=== PATIENT | female | born 1970 | race Caucasian/White ===

== ENCOUNTER 2016-08-01 17:42 | Emergency (ER) | payer BC ==
[2016-08-01] MEDS ORDERED: FAMOTIDINE 20 MG TAB ONE (17:43)
[2016-08-01] MEDS ORDERED: HEPARIN 25,000 UNITS/250 ML D5W BAG (100 UNITS/ML) ONE (17:43)
[2016-08-01] MEDS ORDERED: TENECTEPLASE 50 MG KIT (TNKase)(J3101) ONE (17:43)
[2016-08-01] MEDS ORDERED: HEPARIN SOD (PORCINE) 5000 UNITS/ML VIAL ONE (17:43)
[2016-08-01] MEDS ORDERED: FAMOTIDINE 20 MG TAB As Ordered ONE (18:20)
[2016-08-01] MEDS ORDERED: ISOVUE-370 76% 100ML VIAL (Q9967) As Ordered ONE (18:28)
[2016-08-01 18:30] LABS: BASO % 0.2 % (0.0-1.0); EOS # 0.2 K/mm3 (0.0-0.50); EOS % 1.9 % (0.0-3.0); LARGE UNSTAINED CELL # 0.1 K/mm3 (0.0-0.4); LARGE UNSTAINED CELL % 0.4 % (0.0-4.0); LYMPH # 1.3 K/mm3 (1.5-4.5); LYMPH % 9.1 % (24.0-44.0); MEAN CORPUSCULAR HEMOGLOBIN 31.8 pg (27.0-33.0); MEAN CORPUSCULAR HGB CONC 34.3 g/dl (32.0-36.5); MEAN CORPUSCULAR VOLUME 92.9 fl (80.0-96.0); MONO # 0.6 K/mm3 (0.0-0.8); NEUTROPHILS # 11.5 K/mm3 (1.8-7.7); NEUTROPHILS % 84.3 % (36.0-66.0); PLATELET COUNT, AUTOMATED 252 k/mm3 (150-450); RED CELL DISTRIBUTION WIDTH 12.7 % (11.5-14.5); WHITE BLOOD COUNT 13.6 K/mm3 (4.0-10.0)
[2016-08-01 18:33] LABS: INR 0.97
--- NOTE | 2016-08-01 18:46 | REP ---
Clinical: Chest pain . Comparison: None . Findings: The mediastinum and cardiac silhouette are stable and within normal limits for portable technique. The lung colon are clear without acute consolidation, effusion, or pneumothorax. Skeletal structures are intact. Impression: Normal portable chest x-ray Signed by Phillip Pettit MD 08/01/2016 06:37 P
--- NOTE | 2016-08-01 18:50 | REP ---
Clinical: Acute chest pain. Rule out thoracic aortic dissection. Technique: Axial contrast enhanced images from the thoracic inlet to the upper abdomen using 100 ml Isovue 370 intravenous contrast material with coronal and sagittal re-formations. Findings: Satisfactory enhancement of the thoracic aorta without aneurysm or dissection. Heart and pericardium are normal. Bilateral lung colon are well aerated and clear without acute pulmonary parenchymal consolidation or atelectasis. No nodule or mass lesion. No pleural effusion/reaction. No pneumothorax. No adenopathy. Impression: No evidence for thoracic aortic aneurysm or dissection. No acute pleuroparenchymal or mediastinal process. Signed by Phillip Pettit MD 08/01/2016 06:42 P
[2016-08-01] MEDS ORDERED: MORPHINE 2 MG/ML 1ML SYRINGE As Ordered ONE ×3 (18:51→19:18)
[2016-08-01 18:52] LABS: ANION GAP 9 MEQ/L (8-16); BLOOD UREA NITROGEN 7 MG/DL (7-18); CALCIUM LEVEL 9.4 MG/DL (8.5-10.1); CARBON DIOXIDE LEVEL 29 MEQ/L (21-32); CHLORIDE LEVEL 103 MEQ/L (98-107); GLOMERULAR FILTRATION RATE > 60.0 (>58); GLUCOSE, FASTING 130 MG/DL (70-105); POTASSIUM SERUM 4.2 MEQ/L (3.5-5.1); SODIUM LEVEL 141 MEQ/L (136-145)
[2016-08-01] MEDS ORDERED: METOPROLOL TART 25 MG TABLET As Ordered ONE (19:27)
--- NOTE | 2016-08-01 19:32 | EDDOCDS ---
Physician Documentation [facility] Name: Valery Mendoza Age: 45 yrs Sex: Female : 1970 Arrival Date: 08/01/2016 Time: 17:42 Bed 2 Private MD: NO PRIMARY PHYSICIAN, . Disposition: 08/01 18:55 Critical Care:. pc Disposition: 08/01/16 18:57 Transfer ordered to [facility]. Diagnosis is ST elevation (STEMI) myocardial infarction of other sites - anteroseptolaterally. - Reason for transfer: Higher level of care. - Accepting physician is Dr. Chris. - Condition is Stable. - Problem is new. - Symptoms have improved. HPI: 18:28 This 45 yrs old Female presents to ER via Walkin/Carried/Asstd with pc complaints of Chest Pain. 18:28 The history is obtained from the patient. Symptoms began She has been having chest pain pc on and off for two weeks. It started at 7am this morning and has not stopped. . At its worst, the symptoms were a 10 out of 10. In the emergency department, the symptoms are a 10 out of 10. The chest pain is described as a pressure, a tightness. It is located primarily in the substernal area. The pain does not radiate. The chest pain was associated with nausea, sweating. The symptoms are aggravated by exertion, The symptoms are alleviated by nothing. The patient's known risk factors for coronary artery disease include: smoking cigarettes, hypertension, a family history of coronary artery disease, The patient's known risk factors for pulmonary embolism include: smoking cigarettes, The patient's known risk factors for thoracic aortic dissection include: hypertension. The patient has not recently seen a physician. Historical: - Allergies: no known allergies; - Home Meds: 1. Motrin 600 mg Oral tab (Last dose: 08/01/2016 16:00) 2. Tylenol 325 mg Oral tab 2 tabs (Last dose: 08/01/2016 15:00) - PMHx: none; - PSHx: none; - The history from nurses notes was reviewed: and I agree with what is documented. - Social history: Smoking status: Patient uses tobacco products, current every day smoker. No barriers to communication noted, The patient speaks fluent [place]ian, Speaks appropriately for age. - : The pt / caregiver states he / she is not on anticoagulants. Home medication list is obtained from the patient. - Hospitalizations: : No recent hospitalization is reported. - Exposure Risk Screening:: None identified. - Immunization history:: All immunizations up-to-date. - Family history: Pertinent for heart disease, hypertension. - Social history:: the patient smokes cigarettes the patient drinks alcohol. 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 The cardiovascular, respiratory, pc gastrointestinal and neurological components are also addressed in the HPI. Exam: 18:28 General Appearance: alert, moderate distress. pc 18:28 ENT: ear, nose and throat normal, pharynx normal. 18:28 Neck: supple, non-tender, no masses are appreciated. 18:28 Respiratory: no respiratory distress, normal breath sounds, chest non-tender. 18:28 Cardiovascular: regular heart rhythm, normal heart sounds, equal and full pulses bilaterally, tachycardia, 110bpm. 18:28 Abdomen: soft, non-tender, no organomegaly, normal bowel sounds. 18:28 Skin: skin color is normal, warm, dry. 18:28 Extremities: The extremities have a grossly normal appearance, are non-tender, without acute ROM abnormalities. 18:28 Neuro: alert, oriented to person, place and time, cranial nerves normal as tested, no motor deficits, no sensory deficits. 18:28 Psych: normal mood, affect is appropriate. Vital Signs: 17:44 BP 146 / 114; Pulse 101; Resp 20 S; Temp 99.1(O); Pulse Ox 99% on R/A; Weight 83.91 kg gr2 / 184.99 lbs (R); Height 5 ft. 6 in. (167.64 cm) (R); Pain 10/10; 18:15 BP 132 / 100 (auto/); dsf 18:20 Pulse 110 MON; Pulse Ox 100% ; dsf 18:22 BP 135 / 93 (auto/); dsf 18:22 Pulse 106 MON; Pulse Ox 99% ; dsf 18:24 Pain 7/10; ms2 18:24 Pain 7/10; ms2 18:25 BP 122 / 83 (auto/); dsf 18:25 Pulse 90 MON; Pulse Ox 99% ; dsf 18:25 BP 134 / 89; Pulse 87; Pain 6/10; dsf 18:37 BP 133 / 86 (auto/); dsf 18:40 Pulse 92 MON; Pulse Ox 99% ; dsf 18:41 BP 134 / 89 (auto/); dsf 18:41 Pain 6/10; ms2 18:42 Pulse 78 MON; Pulse Ox 100% ; dsf 18:46 BP 133 / 87 (auto/); dsf 18:46 Pulse 93 MON; Pulse Ox 98% ; dsf 18:46 Pain 6/10; ms2 18:47 BP 136 / 83 (auto/); dsf 18:47 Pulse 88 MON; Pulse Ox 98% on 4 lpm NC; Pain 5/10; dsf 18:51 BP 137 / 80 (auto/); ms2 18:52 Pulse 92 MON; Pulse Ox 97% ; ms2 18:56 BP 129 / 91 (auto/); ms2 18:57 Pulse 73 MON; Pulse Ox 97% ; ms2 18:59 Pain 5/10; ms2 19:01 BP 132 / 88 (auto/); ko2 19:02 Pulse 72 MON; Pulse Ox 98% ; ko2 19:06 BP 136 / 97 (auto/); ko2 19:07 Pulse 95 MON; Pulse Ox 99% ; ko2 19:11 Pain 6/10; ko2 19:25 Pain 5/10; ko2 19:30 BP 141 / 94; Pulse 84; Resp 18; Temp 97.5(T); Pulse Ox 99% on 4 lpm NC; Pain 8/10; ko2 17:44 Body Mass Index 29.86 (83.91 kg, 167.64 cm) gr2 MDM: 17:53 ECG WITH READING ER PHYS+CARDIAG ordered. EDMS 18:11 Financial registration complete. kf3 18:12 Aspirin Chewable Tablet 324 mg PO once ordered. pc 18:12 Plavix - Clopidogrel 300 mg PO once ordered. pc 18:12 Highway Administrative Engineer/Pulse Ox/q 15 min VS ordered. pc 18:12 Draw and hold 1 red top tube ordered. pc 18:12 IV Saline Lock x 2 ordered. pc 18:12 Rhythm Strip to chart ordered. pc 18:12 Nitrostat 0.4 mg Sublingual every 5 minutes; hold if SBP<90mmHg.Document Pain Score pc Response to Each Dose x3 ordered. 18:12 morphine 2 mg IVP every 5 minutes; Document pain score/vitals after each dose (Hold if pc SBP < 90mmHg) x5 ordered. 18:12 Ondansetron 4 mg IVP once ordered. pc 18:13 Basic Metabolic Profile Ordered. EDMS 18:13 CBC with Diff Ordered. EDMS 18:13 Cardiac Injury Profile Ordered. EDMS 18:13 PT/INR Ordered. EDMS 18:13 PTT Ordered. EDMS 18:13 Troponin Ordered. EDMS 18:13 Chest, 1 View Ordered. EDMS 18:15 Famotidine 20 mg PO once ordered. pc 18:26 CT Chest Angio R/O PE Ordered. EDMS 18:28 Differential diagnosis: acute myocardial infarction, pulmonary embolus, thoracic aortic pc disection, unstable angina. Plan: labs, EKG, meds, imaging. The patient was medicated with aspirin in the Emergency Department. Test interpretation: EKG. ED course: . 18:40 Test interpretation: X-RAY - interpreted by me, 1 view chest widened mediastinum r/o pc TAA. 18:43 Tenecteplase (pt 80 to <90kg) 45 mg IV at bolus bolus; IV push over 5 seconds, flush pc line with 10mL of NS or D5W. ordered. 18:43 heparin (Thrombolytic Protocol, 12 units/kg/hr)) 06454 units IV at 1000 units/hr once; pc Max. dose 1000units/hr. No Lovenox past 18hrs/ draw labs. ordered. 18:43 heparin (Thrombolytic Protocol, 60 units/kg)) 60 units/kg IVP once; 4000 units. Ensure pc no Lovenox in past 18hr, labs drawn ordered. 18:44 CBC with Diff Reviewed. pc 18:44 PTT Reviewed. pc 18:44 PT/INR Reviewed. pc 18:50 [facility] [place] [place] Payment Agreement was scanned into [employer] and attached to record. kf3 18:55 Data reviewed: old medical records, vital signs, nurses notes, EKG(s), lab test pc results, all radiology studies and available results. Test interpretation: interpreted by Radiologist and personally reviewed, Chest CT; no acute disease. The patient has been re-examined and re-evaluated. The patient's symptoms have markedly improved after treatment. Physician consultation: Dr. Shabbir Chris regarding patient's condition, and he accepts in transfer to [facility]. Disposition: The historical points, examination findings, and any diagnostic results supporting the provided diagnosis, were discussed with the patient or legal guardian. The decision to transfer to the patient to another facility was explained, based on the need for a required specialist that [facility] does not immediately have available. 18:55 ED course: Thrombolytics were delayed due a widened mediastinum on CXR that required CT pc to rule out a TAA.. 18:58 Basic Metabolic Profile Reviewed. pc 18:58 Troponin Reviewed. pc 19:10 ECG WITH READING ER PHYS+CARDIAG ordered. EDMS 19:19 ED course: ekg at this time shows J point elevations in the pathologic leads have cs11 decreased - ST segment elevation is now technically absent though T wave inversion is still present. pt. also states her chest discomfort has decreased at this time.. 19:25 Metoprolol (Tartrate) 25 mg PO once ordered. cs11 EC:28 Rate is 82 beats/min. Rhythm is regular, Normal Sinus Rhythm. QRS [place] is Normal. ND pc interval is normal. QRS interval is normal. QT interval is normal. No Q waves. T waves are Normal. ST Segment is elevated in leads I, aVL, V5, V6, <1mm. ST Segment is elevated in leads V1, V2, V3, V4, 2-5mm. ST Segment is depressed in leads II, III, aVF. Clinical impression: Normal Sinus Rhythm and widespread ST elevation anteroseptolaterally, with inferior reciprocal ST depression consistent with AMI. Administered Medications: 18:18 Drug: Aspirin 324 mg [aspirin 81 mg chewable tablet (4 tabs)] Route: PO; dsf 18:18 Drug: Plavix - Clopidogrel 300 mg [clopidogrel 75 mg tablet (4 tabs)] Route: PO; dsf 18:18 Drug: Nitrostat 0.4 mg [Nitrostat 0.4 mg sublingual tablet (1 tabs)] Route: Sublingual; dsf 18:18 Drug: morphine 2 mg [morphine 2 mg/mL intravenous cartridge (1 mL)] Route: IVP; Site: dsf right antecubital; 18:24 Follow up: Pain 7/10 Adult; see trend VS ms2 18:18 Drug: Ondansetron 4 mg [ondansetron HCl 2 mg/mL intravenous solution (2 mL)] Route: dsf IVP; Site: right antecubital; 18:24 Drug: Nitrostat 0.4 mg [Nitrostat 0.4 mg sublingual tablet (1 tabs)] Route: Sublingual; dsf 18:24 Follow up: Pain 7/10 Adult; see trend VS ms2 18:24 Drug: Famotidine 20 mg [famotidine 20 mg tablet (1 tabs)] Route: PO; dsf 18:25 CANCELLED (Other Intervention Used): Tenecteplase (pt 80 to <90kg) 45 mg IV at bolus pc bolus; IV push over 5 seconds, flush line with 10mL of NS or D5W. 18:25 CANCELLED (Other Intervention Used): heparin (Thrombolytic Protocol, 12 units/kg/hr)) pc 86783 units IV at 12 units/kg/hr once; 1000units/hr. No Lovenox past 18hrs/ draw labs. 18:25 CANCELLED (Other Intervention Used): heparin (Thrombolytic Protocol, 60 units/kg)) 60 pc units/kg IVP once; 4000 units. Ensure no Lovenox in past 18hr, labs drawn 18:41 Drug: Nitrostat 0.4 mg [Nitrostat 0.4 mg sublingual tablet (1 tabs)] Route: Sublingual; dsf 18:41 Follow up: Pain 6/10 Adult; see trend VS ms2 18:46 Follow up: Pain 6/10 Adult; see trend VS ms2 18:45 Drug: Tenecteplase (pt 80 to <90kg) 45 mg [tenecteplase 50 mg intravenous kit] Route: dsf IV; Rate: bolus; Site: left antecubital; 18:47 Drug: heparin (Thrombolytic Protocol, 12 units/kg/hr)) 59238 units [heparin (porcine) dsf 5,000 unit/mL injection solution] {Co-Signature: ema (Yuly Bradley RN).} Route: IV; Rate: 1000 units/hr; Site: right antecubital; 18:47 Drug: heparin (Thrombolytic Protocol, 60 units/kg)) 5034.6 units [heparin (porcine) dsf 5,000 unit/mL injection solution (1.006 mL)] {Co-Signature: ema (Yuly Bradley RN).} Route: IVP; Site: right antecubital; 18:53 Drug: morphine 2 mg [morphine 2 mg/mL intravenous cartridge (1 mL)] Route: IVP; Site: dsf left antecubital; 18:59 Follow up: Pain 5/10 Adult; see trend VS ms2 19:10 Drug: morphine 2 mg [morphine 2 mg/mL intravenous cartridge (1 mL)] Route: IVP; Site: ko2 left antecubital; 19:11 Follow up: Pain 6/10 Adult ko2 19:23 Drug: morphine 2 mg [morphine 2 mg/mL intravenous cartridge (1 mL)] Route: IVP; Site: ko2 left antecubital; 19:25 Follow up: Pain 5/10 Adult ko2 19:30 Drug: Metoprolol 25 mg [metoprolol tartrate 25 mg tablet (1 tabs)] Route: PO; ko2 Critical Care Time: 18:55 Critical care time: Bedside Care: 40 minutes, Consultation: 15 minutes, Family pc Intervention: 15 minutes. Total time: 70 minutes Signatures: Dispatcher [employer] EDDave Jo MD MD pc Libra Guo, RN RN srm Sanya, Bernardo, Reg Reg kf3 Michael Rojas DO DO cs11 Bethany Arevalo RN RN ko2 Spencer Valero RN ms2 Anna Jensen RN dsf Yuly Bradley RN [facility] The chart was reviewed and I authenticate all verbal orders and agree with the evaluation and treatment provided.Corrections: (The following items were deleted from the chart) 18:25 18:14 Tenecteplase (pt 80 to <90kg) 45 mg IV at bolus bolus; IV push over 5 seconds, pc flush line with 10mL of NS or D5W. ordered. pc 18:25 18:14 heparin (Thrombolytic Protocol, 12 units/kg/hr)) 42003 units IV at 12 units/kg/hr pc once; 1000units/hr. No Lovenox past 18hrs/ draw labs. ordered. pc 18:25 18:14 heparin (Thrombolytic Protocol, 60 units/kg)) 60 units/kg IVP once; 4000 units. pc Ensure no Lovenox in past 18hr, labs drawn ordered. pc Attachments: 18:50 [facility] [place] [place] Payment Agreement kf3 [id number]
--- NOTE | 2016-08-01 19:32 | EDDOCDS ---
Nurse's Notes [facility] Name: Valery Mendoza Age: 45 yrs Sex: Female : 1970 Arrival Date: 08/01/2016 Time: 17:42 Bed 2 Private MD: NO PRIMARY PHYSICIAN, . Diagnosis: ST elevation (STEMI) myocardial infarction of other sites-anteroseptolaterally Presentation: 08/01 17:51 Presenting complaint: Patient states: states started with back ache, cough, chest pain, srm mucousy stools yesterday. pain not going away. headache. head congestion. states has taken tylenol and motrin but cant keep it down. Aspirin was not taken prior to arrival. Adult Sepsis Screening: The patient does not have new or worsening altered mentation. Patient's respiratory rate is less than 22. Systolic blood pressure is greater than 100. Patient has a qSOFA score of 0- Negative Sepsis Screen. Suicide/Homicide risk assessment- the patient denies having any suicidal and/or homicidal ideations and does not present with any other emotional, behavioral or mental health complaints. Status: Patient is not a service delivery management consultant or dependent. Transition of care: patient was not received from another setting of care. 17:51 Acuity: KOKO Level 2 srm 17:51 Method Of Arrival: Walkin/Carried/Asstd srm 17:51 Red Flag criteria, patient assessed and taken directly to a bed. srm Triage Assessment: 17:55 General: Appears uncomfortable, Behavior is appropriate for age, cooperative, crying. srm Pain: Pain currently is 10 out of 10 on a pain scale. Cardiovascular: Chest pain is described as Pain is 10 out of 10 on a pain scale. began yesterday. 19:12 Cardiovascular: Chest pain radiates to left. ko2 19:12 HIV screening NA for this visit Offered previously. ko2 19:13 Cardiovascular: Chest pain episodes are continuous. 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 Motrin 600 mg Oral tab (Last dose: 08/01/2016 16:00) 2. Tylenol 325 mg Oral tab 2 tabs (Last dose: 08/01/2016 15:00) - PMHx: none; - PSHx: none; - The history from nurses notes was reviewed: and I agree with what is documented. - Social history: Smoking status: Patient uses tobacco products, current every day smoker. No barriers to communication noted, The patient speaks fluent Kazakh, Speaks appropriately for age. - : The pt / caregiver states he / she is not on anticoagulants. Home medication list is obtained from the patient. - Hospitalizations: : No recent hospitalization is reported. - Exposure Risk Screening:: None identified. - Immunization history:: All immunizations up-to-date. - Family history: Pertinent for heart disease, hypertension. - Social history:: the patient smokes cigarettes the patient drinks alcohol. Screenin:12 Screening information is obtained from the patient. Fall risk: No risks identified. ko2 Assistance ADL's: requires no assistance with activities of daily living. Abuse/DV Screen: The patient / caregiver reports he/she is: not in a situation that causes fear, pain or injury. Nutritional screening: No deficits noted. Advance Directives: Currently, there is no health care proxy. There is no active DNR order. There is no living will. There is no Power of Experimental Psychologist. home support is adequate. Assessment: 18:20 Adult Sepsis Screening: The patient does not have new or worsening altered mentation. dsf Patient's respiratory rate is less than 22. Systolic blood pressure is greater than 100. Patient has a qSOFA score of 0- Negative Sepsis Screen. General: Appears distressed, uncomfortable, Behavior is crying. Pain: Location: chest Pain currently is 10 out of 10 on a pain scale. Pain radiates to neck Quality of pain is described as tightness. Neurological: Level of Consciousness is awake, alert, Oriented to person, place, time. Cardiovascular: Capillary refill < 3 seconds Heart tones S1 S2 present Rhythm is sinus tachycardia No ectopy. Respiratory: Airway is patent Respiratory effort is even, unlabored, Respiratory pattern is regular, symmetrical, Breath sounds are clear bilaterally. GI: Abdomen is non- distended Bowel sounds present X 4 quads. Abd is soft and non tender X 4 quads. Reports nausea. Derm: Skin is pink, warm & dry. 19:13 General: Appears distressed, uncomfortable, Behavior is appropriate for age, ko2 cooperative, crying. Pain: Location: chest Pain currently is 6 out of 10 on a pain scale. Neurological: Level of Consciousness is awake, alert, Oriented to person, place, time. Cardiovascular: Heart tones S1 S2 present Rhythm is sinus tachycardia No ectopy. Respiratory: Airway is patent Respiratory effort is even, unlabored, Respiratory pattern is regular, symmetrical, Breath sounds are clear bilaterally. Derm: Skin is pink, warm & dry. Vital Signs: 17:44 BP 146 / 114; Pulse 101; Resp 20 S; Temp 99.1(O); Pulse Ox 99% on R/A; Weight 83.91 kg gr2 (R); Height 5 ft. 6 in. (167.64 cm) (R); Pain 10/10; 18:15 BP 132 / 100 (auto/); dsf 18:20 Pulse 110 MON; Pulse Ox 100% ; dsf 18:22 BP 135 / 93 (auto/); dsf 18:22 Pulse 106 MON; Pulse Ox 99% ; dsf 18:24 Pain 7/10; ms2 18:24 Pain 7/10; ms2 18:25 BP 122 / 83 (auto/); dsf 18:25 Pulse 90 MON; Pulse Ox 99% ; dsf 18:25 BP 134 / 89; Pulse 87; Pain 6/10; dsf 18:37 BP 133 / 86 (auto/); dsf 18:40 Pulse 92 MON; Pulse Ox 99% ; dsf 18:41 BP 134 / 89 (auto/); dsf 18:41 Pain 6/10; ms2 18:42 Pulse 78 MON; Pulse Ox 100% ; dsf 18:46 BP 133 / 87 (auto/); dsf 18:46 Pulse 93 MON; Pulse Ox 98% ; dsf 18:46 Pain 6/10; ms2 18:47 BP 136 / 83 (auto/); dsf 18:47 Pulse 88 MON; Pulse Ox 98% on 4 lpm NC; Pain 5/10; dsf 18:51 BP 137 / 80 (auto/); ms2 18:52 Pulse 92 MON; Pulse Ox 97% ; ms2 18:56 BP 129 / 91 (auto/); ms2 18:57 Pulse 73 MON; Pulse Ox 97% ; ms2 18:59 Pain 5/10; ms2 19:01 BP 132 / 88 (auto/); ko2 19:02 Pulse 72 MON; Pulse Ox 98% ; ko2 19:06 BP 136 / 97 (auto/); ko2 19:07 Pulse 95 MON; Pulse Ox 99% ; ko2 19:11 Pain 6/10; ko2 19:25 Pain 5/10; ko2 19:30 BP 141 / 94; Pulse 84; Resp 18; Temp 97.5(T); Pulse Ox 99% on 4 lpm NC; Pain 8/10; ko2 17:44 Body Mass Index 29.86 (83.91 kg, 167.64 cm) gr2 Vitals: 17:44 Log In Time: August 01, 2016 at 17:44. RN notified that patient meets Red Flag gr2 criteria. ED Course: 17:43 Patient visited by Glenn Garcia. gr2 17:43 Patient moved to Waiting gr2 17:44 NO PRIMARY PHYSICIAN, . is Private Physician. gr2 17:49 Patient visited by Glenn Garcia. gr2 17:50 Milo Vanessa, RN is Primary Nurse. gr2 17:50 Patient moved to 17 gr2 17:53 Triage Initiated srm 17:58 EKG done. (by ED staff). Reviewed by Dave Canela MD. dem1 18:05 Patient visited by Leti Cloud. dem1 18:05 site monitor on. Pulse ox on. NIBP on. dem1 18:10 Dave Canela MD is Attending Physician. pc 18:10 Patient visited by Dave Canela MD. pc 18:12 Patient moved to 2 [facility] 18:20 Basic Metabolic Profile Sent. dsf 18:20 CBC with Diff Sent. dsf 18:20 Cardiac Injury Profile Sent. dsf 18:20 PT/INR Sent. dsf 18:20 PTT Sent. dsf 18:20 Troponin Sent. dsf 18:20 Inserted saline lock: 18 gauge in left antecubital area The patient tolerated the dsf procedure well. 18:20 Inserted saline lock: 18 gauge in right antecubital area The patient tolerated the dsf procedure well. 18:21 Patient visited by Mague Millan PCA. rs6 18:50 [facility] was scanned into [employer] and attached to record. kf3 18:56 Bethany Arevalo,MANI is Primary Nurse. ko2 19:08 Attending Physician role handed off by Dave Canela MD cs11 19:08 Michael Rojas DO is Attending Physician. cs11 19:12 The patient / caregiver is instructed regarding the plan of care and ED course. ko2 19:14 Patient visited by Bethany Arevalo RN. ko2 19:18 Patient visited by Bib Laboy PCA. mdr 19:18 EKG done. (by ED staff). Reviewed by Michael Rojas DO. mdr 19:26 No procedures done that require assistance. ko2 Administered Medications: 18:18 Drug: Aspirin 324 mg [aspirin 81 mg chewable tablet (4 tabs)] Route: PO; dsf 18:18 Drug: Plavix - Clopidogrel 300 mg [clopidogrel 75 mg tablet (4 tabs)] Route: PO; dsf 18:18 Drug: Nitrostat 0.4 mg [Nitrostat 0.4 mg sublingual tablet (1 tabs)] Route: Sublingual; dsf 18:18 Drug: morphine 2 mg [morphine 2 mg/mL intravenous cartridge (1 mL)] Route: IVP; Site: dsf right antecubital; 18:24 Follow up: Pain 7/10 Adult; see trend VS ms2 18:18 Drug: Ondansetron 4 mg [ondansetron HCl 2 mg/mL intravenous solution (2 mL)] Route: dsf IVP; Site: right antecubital; 18:24 Drug: Nitrostat 0.4 mg [Nitrostat 0.4 mg sublingual tablet (1 tabs)] Route: Sublingual; dsf 18:24 Follow up: Pain 7/10 Adult; see trend VS ms2 18:24 Drug: Famotidine 20 mg [famotidine 20 mg tablet (1 tabs)] Route: PO; dsf 18:25 CANCELLED (Other Intervention Used): Tenecteplase (pt 80 to <90kg) 45 mg IV at bolus pc bolus; IV push over 5 seconds, flush line with 10mL of NS or D5W. 18:25 CANCELLED (Other Intervention Used): heparin (Thrombolytic Protocol, 12 units/kg/hr)) pc 77566 units IV at 12 units/kg/hr once; 1000units/hr. No Lovenox past 18hrs/ draw labs. 18:25 CANCELLED (Other Intervention Used): heparin (Thrombolytic Protocol, 60 units/kg)) 60 pc units/kg IVP once; 4000 units. Ensure no Lovenox in past 18hr, labs drawn 18:41 Drug: Nitrostat 0.4 mg [Nitrostat 0.4 mg sublingual tablet (1 tabs)] Route: Sublingual; dsf 18:41 Follow up: Pain 6/10 Adult; see trend VS ms2 18:46 Follow up: Pain 6/10 Adult; see trend VS ms2 18:45 Drug: Tenecteplase (pt 80 to <90kg) 45 mg [tenecteplase 50 mg intravenous kit] Route: dsf IV; Rate: bolus; Site: left antecubital; 18:47 Drug: heparin (Thrombolytic Protocol, 12 units/kg/hr)) 20478 units [heparin (porcine) dsf 5,000 unit/mL injection solution] {Co-Signature: mcp (Yuly Bradley RN).} Route: IV; Rate: 1000 units/hr; Site: right antecubital; 18:47 Drug: heparin (Thrombolytic Protocol, 60 units/kg)) 5034.6 units [heparin (porcine) dsf 5,000 unit/mL injection solution (1.006 mL)] {Co-Signature: mcp (Yuly Bradley RN).} Route: IVP; Site: right antecubital; 18:53 Drug: morphine 2 mg [morphine 2 mg/mL intravenous cartridge (1 mL)] Route: IVP; Site: dsf left antecubital; 18:59 Follow up: Pain 5/10 Adult; see trend VS ms2 19:10 Drug: morphine 2 mg [morphine 2 mg/mL intravenous cartridge (1 mL)] Route: IVP; Site: ko2 left antecubital; 19:11 Follow up: Pain 6/10 Adult ko2 19:23 Drug: morphine 2 mg [morphine 2 mg/mL intravenous cartridge (1 mL)] Route: IVP; Site: ko2 left antecubital; 19:25 Follow up: Pain 5/10 Adult ko2 19:30 Drug: Metoprolol 25 mg [metoprolol tartrate 25 mg tablet (1 tabs)] Route: PO; ko2 Intake: Order Results: Lab Order: Basic Metabolic Profile; SPEC'M 08/01/16 18:20 Test: GLUCOSE, FASTING; Value: 130; Range: 70-105; Abnormal: Above high normal; Units: MG/DL; Status: F Test: BLOOD UREA NITROGEN; Value: 7; Range: 7-18; Units: MG/DL; Status: F Test: CREATININE FOR GFR; Value: 0.60; Range: 0.55-1.02; Units: MG/DL; Status: F Test: GLOMERULAR FILTRATION RATE; Value: > 60.0; Range: >58; Status: F Test: SODIUM LEVEL; Value: 141; Range: 136-145; Units: MEQ/L; Status: F Test: POTASSIUM SERUM; Value: 4.2; Range: 3.5-5.1; Units: MEQ/L; Status: F Test: CHLORIDE LEVEL; Value: 103; Range: 98-107; Units: MEQ/L; Status: F Test: CARBON DIOXIDE LEVEL; Value: 29; Range: 21-32; Units: MEQ/L; Status: F Test: ANION GAP; Value: 9; Range: 8-16; Units: MEQ/L; Status: F Test: CALCIUM LEVEL; Value: 9.4; Range: 8.5-10.1; Units: MG/DL; Status: F Test Note: ; Units are mL/min/1.73 m2 Chronic Kidney Disease Staging per NKF: Stage I & II GFR >=60 Normal to Mildly Decreased Stage III GFR 30-59 Moderately Decreased Stage IV GFR 15-29 Severely Decreased Stage V GFR <15 Very Little GFR Left ESRD GFR <15 on HUMAN RESOURCES SUPERVISOR Lab Order: CBC with Diff; SPEC'M 08/01/16 18:20 Test: WHITE BLOOD COUNT; Value: 13.6; Range: 4.0-10.0; Abnormal: Above high normal; Units: K/mm3; Status: F Test: RED BLOOD COUNT; Value: 4.90; Range: 4.00-5.40; Units: M/mm3; Status: F Test: HEMOGLOBIN; Value: 15.6; Range: 12.0-16.0; Units: g/dl; Status: F Test: HEMATOCRIT; Value: 45.6; Range: 36.0-47.0; Units: %; Status: F Test: MEAN CORPUSCULAR VOLUME; Value: 92.9; Range: 80.0-96.0; Units: fl; Status: F Test: MEAN CORPUSCULAR HEMOGLOBIN; Value: 31.8; Range: 27.0-33.0; Units: pg; Status: F Test: MEAN CORPUSCULAR HGB CONC; Value: 34.3; Range: 32.0-36.5; Units: g/dl; Status: F Test: RED CELL DISTRIBUTION WIDTH; Value: 12.7; Range: 11.5-14.5; Units: %; Status: F Test: PLATELET COUNT, AUTOMATED; Value: 252; Range: 150-450; Units: k/mm3; Status: F Test: NEUTROPHILS %; Value: 84.3; Range: 36.0-66.0; Abnormal: Above high normal; Units: %; Status: F Test: LYMPH %; Value: 9.1; Range: 24.0-44.0; Abnormal: Below low normal; Units: %; Status: F Test: MONO %; Value: 4.0; Range: 0.0-5.0; Units: %; Status: F Test: EOS %; Value: 1.9; Range: 0.0-3.0; Units: %; Status: F Test: BASO %; Value: 0.2; Range: 0.0-1.0; Units: %; Status: F Test: LARGE UNSTAINED CELL %; Value: 0.4; Range: 0.0-4.0; Units: %; Status: F Test: NEUTROPHILS #; Value: 11.5; Range: 1.8-7.7; Abnormal: Above high normal; Units: K/mm3; Status: F Test: LYMPH #; Value: 1.3; Range: 1.5-4.5; Abnormal: Below low normal; Units: K/mm3; Status: F Test: MONO #; Value: 0.6; Range: 0.0-0.8; Units: K/mm3; Status: F Test: EOS #; Value: 0.2; Range: 0.0-0.50; Units: K/mm3; Status: F Test: BASO #; Value: 0.0; Range: 0.0-0.2; Units: K/mm3; Status: F Test: LARGE UNSTAINED CELL #; Value: 0.1; Range: 0.0-0.4; Units: K/mm3; Status: F Lab Order: Cardiac Injury Profile; SPEC'M 08/01/16 18:20 Test: CPK CREATINE PHOSPHOKINASE; Value: 1701; Range: 26-192; Abnormal: Above high normal; Units: U/L; Status: F Test: CK-MB VALUE MASS; Value: 271.1; Range: 0.0-3.6; Abnormal: Above high normal; Units: NG/ML; Status: F Test: MB/CK RELATIVE INDEX; Value: 15.93; Range: < OR =4; Abnormal: Above high normal; Status: F Test Note: ; DIAGNOSIS CRITERIA MMB ng/ml Relative Index (RI) NON-AMI < or = 5 N/A RODRIGUEZ ZONE > 5 < or = 4 AMI > 5 > 4 Lab Order: PT/INR; [facility] 08/01/16 18:20 Test: PROTHROMBIN TIME; Value: 13.0; Range: 12.3-14.5; Units: SECONDS; Status: F Test: INR; Value: 0.97; Status: F Test Note: ; THERAPUTIC HUMAN INR VALUES INDICATIONS NORMAL RANGES PROPHYLAXIS/TREATMENT OF: VENOUS THROMBOSIS 2.0-3.0 PULMONARY EMBOLISM 2.0-3.0 PREVENTION OF SYSTEMIC EMBOLISM FROM: TISSUE HEART VALVES 2.0-3.0 ACUTE MYOCARDIAL INFARCTION 2.0-3.0 VALVULAR HEART DISEASE 2.0-3.0 ATRIAL FIBRILLATION 2.0-3.0 MECHANICAL VALVES(HIGH RISK) 2.5-3.5 RECURRENT MYOCARDIAL INFARCTION 2.5-3.5 Lab Order: PTT; [facility] 08/01/16 18:20 Test: PARTIAL THROMBOPLASTIN TIME; Value: 25.6; Range: 26.6-37.1; Abnormal: Below low normal; Units: SECONDS; Status: F Lab Order: Troponin; [facility] 08/01/16 18:20 Test: TROPONIN I; Value: 13.80; Range: < 0.10; Abnormal: Above upper panic limits; Units: NG/ML; Status: F Test Note: ; Troponin I Reference Interval for [employer] LOCI: 99th Percentile= 0.00-0.045 ng/ml Risk Stratification: <= 0.10 ng/ml Decreased Risk for Adverse Clinical Events. 0.10-1.50 ng/ml Increased Risk for Adverse Clinical Events. Evaluation of additional criterion and/or repeat testing in 2-6 hours is suggested to rule out myocardial damage. >= 1.50 ng/ml Indicative of Myocardial Injury. Outcome: 18:57 ER care complete, transfer ordered by Provider. pc 19:06 Admission hand-off: Report called to Ever Crystal RN. dsf 19:14 CT Study completed. ko2 19:26 Discharge Assessment: Patient awake, alert and oriented x 3. No cognitive and/or ko2 functional deficits noted. Patient verbalized understanding of disposition instructions. patient administered narcotics - yes. Patient was admitted to the hospital or transferred to another facility. The following High Risk Discharge criteria are identified: Yes, [place]. Transferred to [facility]. by EMS ground [place] ambulance report to accompanying personnel Derrek Beverly, Supervisor Pipe Manufacture and Michael Miller EMT. Condition: stable. Property :Personal belongings accompany Pt. 19:31 Patient left the ED. ko2 Signatures: Dave Canela MD MD Spencer Valero,RN RN ms2 Libra Guo RN Yuly Jimenez RN MANI mcp Bernardo Segundo, Reg Reg kf3 Anna JensenRN RN dsf Leti Cloud dem1 Michael Rojas, DO DO cs11 Glenn Garcia gr2 Bethany Arevalo RN RN ko2 Mague Millan, EVP CHIEF EXPLORATION OFFICER EVP CHIEF EXPLORATION OFFICER rs6 Bib Laboy, EVP CHIEF EXPLORATION OFFICER EVP CHIEF EXPLORATION OFFICER mdr Yuly Bradley RN [facility] MTDD
--- NOTE | 2016-08-02 15:17 | ECGEPIP ---
Stationary ECG Study [facility] - ED Test Date: 2016-08-01 Pat Name: ABRAHAM IZQUIERDO Department: Room: - Gender: F Clinical Team Lead: mickie : 1970 Requested By: Dave Gonzalez Order Number: [id number] Reading MD: Tequila Liang Measurements Intervals [place] Rate: 82 P: 74 LA: 150 QRS: 88 QRSD: 94 T: 90 QT: 326 QTc: 381 Interpretive Statements SINUS RHYTHM WITH MARKED SINUS ARRHYTHMIA ST ELEVATION, ANTERIOR INJURY, ACUTE [place] CLINICAL CORRELATION NO PRIOR FOR COMPARISON Electronically Signed On 08-02-2016 15:16:56 EST by Tequila Liang
--- NOTE | 2016-08-02 15:22 | ECGEPIP ---
Stationary ECG Study [facility] - ED Test Date: 2016-08-01 Pat Name: ABRAHAM IZQUIERDO Department: Room: - Gender: F Product Info Specialist: mr : 1970 Requested By: HECTOR SAEED Order Number: [id number] Reading MD: Tequila Liang Measurements Intervals [place] Rate: 73 P: 68 TN: 142 QRS: 89 QRSD: 105 T: 108 QT: 451 QTc: 497 Interpretive Statements SINUS RHYTHM WITH OCCASIONAL SUPRAVENTRICULAR PREMATURE COMPLEXES ANTEROLATERAL ST ELEVATION, ACUTE ISCHEMIA, PROGRESSION COMPARED 17:58 CLINICAL CORRELATION Electronically Signed On 08-02-2016 15:21:54 EST by Tequila Liang
--- NOTE | 2016-08-03 20:32 | EDDOCDS ---
Physician Documentation [facility] Name: Valery Mendoza Age: 45 yrs Sex: Female : 1970 Arrival Date: 08/01/2016 Time: 17:42 Bed 2 Private MD: NO PRIMARY PHYSICIAN, . Disposition: 08/01 18:55 Critical Care:. pc Disposition: 08/01/16 18:57 Transfer ordered to [facility]. Diagnosis is ST elevation (STEMI) myocardial infarction of other sites - anteroseptolaterally. - Reason for transfer: Higher level of care. - Accepting physician is Dr. Chris. - Condition is Stable. - Problem is new. - Symptoms have improved. HPI: 18:28 This 45 yrs old Female presents to ER via Walkin/Carried/Asstd with pc complaints of Chest Pain. 18:28 The history is obtained from the patient. Symptoms began She has been having chest pain pc on and off for two weeks. It started at 7am this morning and has not stopped. . At its worst, the symptoms were a 10 out of 10. In the emergency department, the symptoms are a 10 out of 10. The chest pain is described as a pressure, a tightness. It is located primarily in the substernal area. The pain does not radiate. The chest pain was associated with nausea, sweating. The symptoms are aggravated by exertion, The symptoms are alleviated by nothing. The patient's known risk factors for coronary artery disease include: smoking cigarettes, hypertension, a family history of coronary artery disease, The patient's known risk factors for pulmonary embolism include: smoking cigarettes, The patient's known risk factors for thoracic aortic dissection include: hypertension. The patient has not recently seen a physician. Historical: - Allergies: no known allergies; - Home Meds: 1. Motrin 600 mg Oral tab (Last dose: 08/01/2016 16:00) 2. Tylenol 325 mg Oral tab 2 tabs (Last dose: 08/01/2016 15:00) - PMHx: none; - PSHx: none; - The history from nurses notes was reviewed: and I agree with what is documented. - Social history: Smoking status: Patient uses tobacco products, current every day smoker. No barriers to communication noted, The patient speaks fluent Malay, Speaks appropriately for age. - : The pt / caregiver states he / she is not on anticoagulants. Home medication list is obtained from the patient. - Hospitalizations: : No recent hospitalization is reported. - Exposure Risk Screening:: None identified. - Immunization history:: All immunizations up-to-date. - Family history: Pertinent for heart disease, hypertension. - Social history:: the patient smokes cigarettes the patient drinks alcohol. 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 The cardiovascular, respiratory, pc gastrointestinal and neurological components are also addressed in the HPI. Exam: 18:28 General Appearance: alert, moderate distress. pc 18:28 ENT: ear, nose and throat normal, pharynx normal. 18:28 Neck: supple, non-tender, no masses are appreciated. 18:28 Respiratory: no respiratory distress, normal breath sounds, chest non-tender. 18:28 Cardiovascular: regular heart rhythm, normal heart sounds, equal and full pulses bilaterally, tachycardia, 110bpm. 18:28 Abdomen: soft, non-tender, no organomegaly, normal bowel sounds. 18:28 Skin: skin color is normal, warm, dry. 18:28 Extremities: The extremities have a grossly normal appearance, are non-tender, without acute ROM abnormalities. 18:28 Neuro: alert, oriented to person, place and time, cranial nerves normal as tested, no motor deficits, no sensory deficits. 18:28 Psych: normal mood, affect is appropriate. Vital Signs: 17:44 BP 146 / 114; Pulse 101; Resp 20 S; Temp 99.1(O); Pulse Ox 99% on R/A; Weight 83.91 kg gr2 / 184.99 lbs (R); Height 5 ft. 6 in. (167.64 cm) (R); Pain 10/10; 18:15 BP 132 / 100 (auto/); dsf 18:20 Pulse 110 MON; Pulse Ox 100% ; dsf 18:22 BP 135 / 93 (auto/); dsf 18:22 Pulse 106 MON; Pulse Ox 99% ; dsf 18:24 Pain 7/10; ms2 18:24 Pain 7/10; ms2 18:25 BP 122 / 83 (auto/); dsf 18:25 Pulse 90 MON; Pulse Ox 99% ; dsf 18:25 BP 134 / 89; Pulse 87; Pain 6/10; dsf 18:37 BP 133 / 86 (auto/); dsf 18:40 Pulse 92 MON; Pulse Ox 99% ; dsf 18:41 BP 134 / 89 (auto/); dsf 18:41 Pain 6/10; ms2 18:42 Pulse 78 MON; Pulse Ox 100% ; dsf 18:46 BP 133 / 87 (auto/); dsf 18:46 Pulse 93 MON; Pulse Ox 98% ; dsf 18:46 Pain 6/10; ms2 18:47 BP 136 / 83 (auto/); dsf 18:47 Pulse 88 MON; Pulse Ox 98% on 4 lpm NC; Pain 5/10; dsf 18:51 BP 137 / 80 (auto/); ms2 18:52 Pulse 92 MON; Pulse Ox 97% ; ms2 18:56 BP 129 / 91 (auto/); ms2 18:57 Pulse 73 MON; Pulse Ox 97% ; ms2 18:59 Pain 5/10; ms2 19:01 BP 132 / 88 (auto/); ko2 19:02 Pulse 72 MON; Pulse Ox 98% ; ko2 19:06 BP 136 / 97 (auto/); ko2 19:07 Pulse 95 MON; Pulse Ox 99% ; ko2 19:11 Pain 6/10; ko2 19:25 Pain 5/10; ko2 19:30 BP 141 / 94; Pulse 84; Resp 18; Temp 97.5(T); Pulse Ox 99% on 4 lpm NC; Pain 8/10; ko2 17:44 Body Mass Index 29.86 (83.91 kg, 167.64 cm) gr2 MDM: 17:53 ECG WITH READING ER PHYS+CARDIAG ordered. EDMS 18:11 Financial registration complete. kf3 18:12 Aspirin Chewable Tablet 324 mg PO once ordered. pc 18:12 Plavix - Clopidogrel 300 mg PO once ordered. pc 18:12 Data Analytics Developer/Pulse Ox/q 15 min VS ordered. pc 18:12 Draw and hold 1 red top tube ordered. pc 18:12 IV Saline Lock x 2 ordered. pc 18:12 Rhythm Strip to chart ordered. pc 18:12 Nitrostat 0.4 mg Sublingual every 5 minutes; hold if SBP<90mmHg.Document Pain Score pc Response to Each Dose x3 ordered. 18:12 morphine 2 mg IVP every 5 minutes; Document pain score/vitals after each dose (Hold if pc SBP < 90mmHg) x5 ordered. 18:12 Ondansetron 4 mg IVP once ordered. pc 18:13 Basic Metabolic Profile Ordered. EDMS 18:13 CBC with Diff Ordered. EDMS 18:13 Cardiac Injury Profile Ordered. EDMS 18:13 PT/INR Ordered. EDMS 18:13 PTT Ordered. EDMS 18:13 Troponin Ordered. EDMS 18:13 Chest, 1 View Ordered. EDMS 18:15 Famotidine 20 mg PO once ordered. pc 18:26 CT Chest Angio R/O PE Ordered. EDMS 18:28 Differential diagnosis: acute myocardial infarction, pulmonary embolus, thoracic aortic pc disection, unstable angina. Plan: labs, EKG, meds, imaging. The patient was medicated with aspirin in the Emergency Department. Test interpretation: EKG. ED course: . 18:40 Test interpretation: X-RAY - interpreted by me, 1 view chest widened mediastinum r/o pc TAA. 18:43 Tenecteplase (pt 80 to <90kg) 45 mg IV at bolus bolus; IV push over 5 seconds, flush pc line with 10mL of NS or D5W. ordered. 18:43 heparin (Thrombolytic Protocol, 12 units/kg/hr)) 53068 units IV at 1000 units/hr once; pc Max. dose 1000units/hr. No Lovenox past 18hrs/ draw labs. ordered. 18:43 heparin (Thrombolytic Protocol, 60 units/kg)) 60 units/kg IVP once; 4000 units. Ensure pc no Lovenox in past 18hr, labs drawn ordered. 18:44 CBC with Diff Reviewed. pc 18:44 PTT Reviewed. pc 18:44 PT/INR Reviewed. pc 18:50 [facility] Payment Agreement was scanned into [employer] and attached to record. kf3 18:55 Data reviewed: old medical records, vital signs, nurses notes, EKG(s), lab test pc results, all radiology studies and available results. Test interpretation: interpreted by Radiologist and personally reviewed, Chest CT; no acute disease. The patient has been re-examined and re-evaluated. The patient's symptoms have markedly improved after treatment. Physician consultation: Dr. Shabbir Chris regarding patient's condition, and he accepts in transfer to [facility]. Disposition: The historical points, examination findings, and any diagnostic results supporting the provided diagnosis, were discussed with the patient or legal guardian. The decision to transfer to the patient to another facility was explained, based on the need for a required specialist that [facility] does not immediately have available. 18:55 ED course: Thrombolytics were delayed due a widened mediastinum on CXR that required CT pc to rule out a TAA.. 18:58 Basic Metabolic Profile Reviewed. pc 18:58 Troponin Reviewed. pc 19:10 ECG WITH READING ER PHYS+CARDIAG ordered. EDMS 19:19 ED course: ekg at this time shows J point elevations in the pathologic leads have cs11 decreased - ST segment elevation is now technically absent though T wave inversion is still present. pt. also states her chest discomfort has decreased at this time.. 19:25 Metoprolol (Tartrate) 25 mg PO once ordered. cs11 EC:28 Rate is 82 beats/min. Rhythm is regular, Normal Sinus Rhythm. QRS [place] is Normal. DC pc interval is normal. QRS interval is normal. QT interval is normal. No Q waves. T waves are Normal. ST Segment is elevated in leads I, aVL, V5, V6, <1mm. ST Segment is elevated in leads V1, V2, V3, V4, 2-5mm. ST Segment is depressed in leads II, III, aVF. Clinical impression: Normal Sinus Rhythm and widespread ST elevation anteroseptolaterally, with inferior reciprocal ST depression consistent with AMI. Administered Medications: 18:18 Drug: Aspirin 324 mg [aspirin 81 mg chewable tablet (4 tabs)] Route: PO; dsf 18:18 Drug: Plavix - Clopidogrel 300 mg [clopidogrel 75 mg tablet (4 tabs)] Route: PO; dsf 18:18 Drug: Nitrostat 0.4 mg [Nitrostat 0.4 mg sublingual tablet (1 tabs)] Route: Sublingual; dsf 18:18 Drug: morphine 2 mg [morphine 2 mg/mL intravenous cartridge (1 mL)] Route: IVP; Site: dsf right antecubital; 18:24 Follow up: Pain 7/10 Adult; see trend VS ms2 18:18 Drug: Ondansetron 4 mg [ondansetron HCl 2 mg/mL intravenous solution (2 mL)] Route: dsf IVP; Site: right antecubital; 18:24 Drug: Nitrostat 0.4 mg [Nitrostat 0.4 mg sublingual tablet (1 tabs)] Route: Sublingual; dsf 18:24 Follow up: Pain 7/10 Adult; see trend VS ms2 18:24 Drug: Famotidine 20 mg [famotidine 20 mg tablet (1 tabs)] Route: PO; dsf 18:25 CANCELLED (Other Intervention Used): Tenecteplase (pt 80 to <90kg) 45 mg IV at bolus pc bolus; IV push over 5 seconds, flush line with 10mL of NS or D5W. 18:25 CANCELLED (Other Intervention Used): heparin (Thrombolytic Protocol, 12 units/kg/hr)) pc 95179 units IV at 12 units/kg/hr once; 1000units/hr. No Lovenox past 18hrs/ draw labs. 18:25 CANCELLED (Other Intervention Used): heparin (Thrombolytic Protocol, 60 units/kg)) 60 pc units/kg IVP once; 4000 units. Ensure no Lovenox in past 18hr, labs drawn 18:41 Drug: Nitrostat 0.4 mg [Nitrostat 0.4 mg sublingual tablet (1 tabs)] Route: Sublingual; dsf 18:41 Follow up: Pain 6/10 Adult; see trend VS ms2 18:46 Follow up: Pain 6/10 Adult; see trend VS ms2 18:45 Drug: Tenecteplase (pt 80 to <90kg) 45 mg [tenecteplase 50 mg intravenous kit] Route: dsf IV; Rate: bolus; Site: left antecubital; 18:47 Drug: heparin (Thrombolytic Protocol, 12 units/kg/hr)) 31351 units [heparin (porcine) dsf 5,000 unit/mL injection solution] {Co-Signature: ema (Yuly Bradley RN).} Route: IV; Rate: 1000 units/hr; Site: right antecubital; 18:47 Drug: heparin (Thrombolytic Protocol, 60 units/kg)) 5034.6 units [heparin (porcine) dsf 5,000 unit/mL injection solution (1.006 mL)] {Co-Signature: ema (Yuly Bradley RN).} Route: IVP; Site: right antecubital; 18:53 Drug: morphine 2 mg [morphine 2 mg/mL intravenous cartridge (1 mL)] Route: IVP; Site: dsf left antecubital; 18:59 Follow up: Pain 5/10 Adult; see trend VS ms2 19:10 Drug: morphine 2 mg [morphine 2 mg/mL intravenous cartridge (1 mL)] Route: IVP; Site: ko2 left antecubital; 19:11 Follow up: Pain 6/10 Adult ko2 19:23 Drug: morphine 2 mg [morphine 2 mg/mL intravenous cartridge (1 mL)] Route: IVP; Site: ko2 left antecubital; 19:25 Follow up: Pain 5/10 Adult ko2 19:30 Drug: Metoprolol 25 mg [metoprolol tartrate 25 mg tablet (1 tabs)] Route: PO; ko2 Critical Care Time: 18:55 Critical care time: Bedside Care: 40 minutes, Consultation: 15 minutes, Family pc Intervention: 15 minutes. Total time: 70 minutes Signatures: Dispatcher [employer] EDDave Jo MD MD pc Libra Guo, RN RN srm Sanya, Bernardo, Reg Reg kf3 Michael Rojas DO DO cs11 Bethany Arevalo RN RN ko2 Spencer Valero RN ms2 Anna Jensen RN dsf Yuly Bradley RN [facility] The chart was reviewed and I authenticate all verbal orders and agree with the evaluation and treatment provided.Corrections: (The following items were deleted from the chart) 18:25 18:14 Tenecteplase (pt 80 to <90kg) 45 mg IV at bolus bolus; IV push over 5 seconds, pc flush line with 10mL of NS or D5W. ordered. pc 18:25 18:14 heparin (Thrombolytic Protocol, 12 units/kg/hr)) 73602 units IV at 12 units/kg/hr pc once; 1000units/hr. No Lovenox past 18hrs/ draw labs. ordered. pc 18:25 18:14 heparin (Thrombolytic Protocol, 60 units/kg)) 60 units/kg IVP once; 4000 units. pc Ensure no Lovenox in past 18hr, labs drawn ordered. pc Attachments: 18:50 [facility] Payment Agreement kf3 Chart Complete MTDD
--- NOTE | 2016-08-03 20:32 | EDDOCDS ---
Physician Documentation [facility] Name: Valery Mendoza Age: 45 yrs Sex: Female : 1970 Arrival Date: 08/01/2016 Time: 17:42 Bed 2 Private MD: NO PRIMARY PHYSICIAN, . Disposition: 08/01 18:55 Critical Care:. pc Disposition: 08/01/16 18:57 Transfer ordered to [facility]. Diagnosis is ST elevation (STEMI) myocardial infarction of other sites - anteroseptolaterally. - Reason for transfer: Higher level of care. - Accepting physician is Dr. Chris. - Condition is Stable. - Problem is new. - Symptoms have improved. HPI: 18:28 This 45 yrs old Female presents to ER via Walkin/Carried/Asstd with pc complaints of Chest Pain. 18:28 The history is obtained from the patient. Symptoms began She has been having chest pain pc on and off for two weeks. It started at 7am this morning and has not stopped. . At its worst, the symptoms were a 10 out of 10. In the emergency department, the symptoms are a 10 out of 10. The chest pain is described as a pressure, a tightness. It is located primarily in the substernal area. The pain does not radiate. The chest pain was associated with nausea, sweating. The symptoms are aggravated by exertion, The symptoms are alleviated by nothing. The patient's known risk factors for coronary artery disease include: smoking cigarettes, hypertension, a family history of coronary artery disease, The patient's known risk factors for pulmonary embolism include: smoking cigarettes, The patient's known risk factors for thoracic aortic dissection include: hypertension. The patient has not recently seen a physician. Historical: - Allergies: no known allergies; - Home Meds: 1. Motrin 600 mg Oral tab (Last dose: 08/01/2016 16:00) 2. Tylenol 325 mg Oral tab 2 tabs (Last dose: 08/01/2016 15:00) - PMHx: none; - PSHx: none; - The history from nurses notes was reviewed: and I agree with what is documented. - Social history: Smoking status: Patient uses tobacco products, current every day smoker. No barriers to communication noted, The patient speaks fluent [place], Speaks appropriately for age. - : The pt / caregiver states he / she is not on anticoagulants. Home medication list is obtained from the patient. - Hospitalizations: : No recent hospitalization is reported. - Exposure Risk Screening:: None identified. - Immunization history:: All immunizations up-to-date. - Family history: Pertinent for heart disease, hypertension. - Social history:: the patient smokes cigarettes the patient drinks alcohol. 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 The cardiovascular, respiratory, pc gastrointestinal and neurological components are also addressed in the HPI. Exam: 18:28 General Appearance: alert, moderate distress. pc 18:28 ENT: ear, nose and throat normal, pharynx normal. 18:28 Neck: supple, non-tender, no masses are appreciated. 18:28 Respiratory: no respiratory distress, normal breath sounds, chest non-tender. 18:28 Cardiovascular: regular heart rhythm, normal heart sounds, equal and full pulses bilaterally, tachycardia, 110bpm. 18:28 Abdomen: soft, non-tender, no organomegaly, normal bowel sounds. 18:28 Skin: skin color is normal, warm, dry. 18:28 Extremities: The extremities have a grossly normal appearance, are non-tender, without acute ROM abnormalities. 18:28 Neuro: alert, oriented to person, place and time, cranial nerves normal as tested, no motor deficits, no sensory deficits. 18:28 Psych: normal mood, affect is appropriate. Vital Signs: 17:44 BP 146 / 114; Pulse 101; Resp 20 S; Temp 99.1(O); Pulse Ox 99% on R/A; Weight 83.91 kg gr2 / 184.99 lbs (R); Height 5 ft. 6 in. (167.64 cm) (R); Pain 10/10; 18:15 BP 132 / 100 (auto/); dsf 18:20 Pulse 110 MON; Pulse Ox 100% ; dsf 18:22 BP 135 / 93 (auto/); dsf 18:22 Pulse 106 MON; Pulse Ox 99% ; dsf 18:24 Pain 7/10; ms2 18:24 Pain 7/10; ms2 18:25 BP 122 / 83 (auto/); dsf 18:25 Pulse 90 MON; Pulse Ox 99% ; dsf 18:25 BP 134 / 89; Pulse 87; Pain 6/10; dsf 18:37 BP 133 / 86 (auto/); dsf 18:40 Pulse 92 MON; Pulse Ox 99% ; dsf 18:41 BP 134 / 89 (auto/); dsf 18:41 Pain 6/10; ms2 18:42 Pulse 78 MON; Pulse Ox 100% ; dsf 18:46 BP 133 / 87 (auto/); dsf 18:46 Pulse 93 MON; Pulse Ox 98% ; dsf 18:46 Pain 6/10; ms2 18:47 BP 136 / 83 (auto/); dsf 18:47 Pulse 88 MON; Pulse Ox 98% on 4 lpm NC; Pain 5/10; dsf 18:51 BP 137 / 80 (auto/); ms2 18:52 Pulse 92 MON; Pulse Ox 97% ; ms2 18:56 BP 129 / 91 (auto/); ms2 18:57 Pulse 73 MON; Pulse Ox 97% ; ms2 18:59 Pain 5/10; ms2 19:01 BP 132 / 88 (auto/); ko2 19:02 Pulse 72 MON; Pulse Ox 98% ; ko2 19:06 BP 136 / 97 (auto/); ko2 19:07 Pulse 95 MON; Pulse Ox 99% ; ko2 19:11 Pain 6/10; ko2 19:25 Pain 5/10; ko2 19:30 BP 141 / 94; Pulse 84; Resp 18; Temp 97.5(T); Pulse Ox 99% on 4 lpm NC; Pain 8/10; ko2 17:44 Body Mass Index 29.86 (83.91 kg, 167.64 cm) gr2 MDM: 17:53 ECG WITH READING ER PHYS+CARDIAG ordered. EDMS 18:11 Financial registration complete. kf3 18:12 Aspirin Chewable Tablet 324 mg PO once ordered. pc 18:12 Plavix - Clopidogrel 300 mg PO once ordered. pc 18:12 Steelscope Operator/Pulse Ox/q 15 min VS ordered. pc 18:12 Draw and hold 1 red top tube ordered. pc 18:12 IV Saline Lock x 2 ordered. pc 18:12 Rhythm Strip to chart ordered. pc 18:12 Nitrostat 0.4 mg Sublingual every 5 minutes; hold if SBP<90mmHg.Document Pain Score pc Response to Each Dose x3 ordered. 18:12 morphine 2 mg IVP every 5 minutes; Document pain score/vitals after each dose (Hold if pc SBP < 90mmHg) x5 ordered. 18:12 Ondansetron 4 mg IVP once ordered. pc 18:13 Basic Metabolic Profile Ordered. EDMS 18:13 CBC with Diff Ordered. EDMS 18:13 Cardiac Injury Profile Ordered. EDMS 18:13 PT/INR Ordered. EDMS 18:13 PTT Ordered. EDMS 18:13 Troponin Ordered. EDMS 18:13 Chest, 1 View Ordered. EDMS 18:15 Famotidine 20 mg PO once ordered. pc 18:26 CT Chest Angio R/O PE Ordered. EDMS 18:28 Differential diagnosis: acute myocardial infarction, pulmonary embolus, thoracic aortic pc disection, unstable angina. Plan: labs, EKG, meds, imaging. The patient was medicated with aspirin in the Emergency Department. Test interpretation: EKG. ED course: . 18:40 Test interpretation: X-RAY - interpreted by me, 1 view chest widened mediastinum r/o pc TAA. 18:43 Tenecteplase (pt 80 to <90kg) 45 mg IV at bolus bolus; IV push over 5 seconds, flush pc line with 10mL of NS or D5W. ordered. 18:43 heparin (Thrombolytic Protocol, 12 units/kg/hr)) 59512 units IV at 1000 units/hr once; pc Max. dose 1000units/hr. No Lovenox past 18hrs/ draw labs. ordered. 18:43 heparin (Thrombolytic Protocol, 60 units/kg)) 60 units/kg IVP once; 4000 units. Ensure pc no Lovenox in past 18hr, labs drawn ordered. 18:44 CBC with Diff Reviewed. pc 18:44 PTT Reviewed. pc 18:44 PT/INR Reviewed. pc 18:50 [facility] [place] Payment Agreement was scanned into [employer] and attached to record. kf3 18:55 Data reviewed: old medical records, vital signs, nurses notes, EKG(s), lab test pc results, all radiology studies and available results. Test interpretation: interpreted by Radiologist and personally reviewed, Chest CT; no acute disease. The patient has been re-examined and re-evaluated. The patient's symptoms have markedly improved after treatment. Physician consultation: Dr. Shabbir Chris regarding patient's condition, and he accepts in transfer to [facility]. Disposition: The historical points, examination findings, and any diagnostic results supporting the provided diagnosis, were discussed with the patient or legal guardian. The decision to transfer to the patient to another facility was explained, based on the need for a required specialist that [facility] does not immediately have available. 18:55 ED course: Thrombolytics were delayed due a widened mediastinum on CXR that required CT pc to rule out a TAA.. 18:58 Basic Metabolic Profile Reviewed. pc 18:58 Troponin Reviewed. pc 19:10 ECG WITH READING ER PHYS+CARDIAG ordered. EDMS 19:19 ED course: ekg at this time shows J point elevations in the pathologic leads have cs11 decreased - ST segment elevation is now technically absent though T wave inversion is still present. pt. also states her chest discomfort has decreased at this time.. 19:25 Metoprolol (Tartrate) 25 mg PO once ordered. cs11 EC:28 Rate is 82 beats/min. Rhythm is regular, Normal Sinus Rhythm. QRS Register is Normal. MS pc interval is normal. QRS interval is normal. QT interval is normal. No Q waves. T waves are Normal. ST Segment is elevated in leads I, aVL, V5, V6, <1mm. ST Segment is elevated in leads V1, V2, V3, V4, 2-5mm. ST Segment is depressed in leads II, III, aVF. Clinical impression: Normal Sinus Rhythm and widespread ST elevation anteroseptolaterally, with inferior reciprocal ST depression consistent with AMI. Administered Medications: 18:18 Drug: Aspirin 324 mg [aspirin 81 mg chewable tablet (4 tabs)] Route: PO; dsf 18:18 Drug: Plavix - Clopidogrel 300 mg [clopidogrel 75 mg tablet (4 tabs)] Route: PO; dsf 18:18 Drug: Nitrostat 0.4 mg [Nitrostat 0.4 mg sublingual tablet (1 tabs)] Route: Sublingual; dsf 18:18 Drug: morphine 2 mg [morphine 2 mg/mL intravenous cartridge (1 mL)] Route: IVP; Site: dsf right antecubital; 18:24 Follow up: Pain 7/10 Adult; see trend VS ms2 18:18 Drug: Ondansetron 4 mg [ondansetron HCl 2 mg/mL intravenous solution (2 mL)] Route: dsf IVP; Site: right antecubital; 18:24 Drug: Nitrostat 0.4 mg [Nitrostat 0.4 mg sublingual tablet (1 tabs)] Route: Sublingual; dsf 18:24 Follow up: Pain 7/10 Adult; see trend VS ms2 18:24 Drug: Famotidine 20 mg [famotidine 20 mg tablet (1 tabs)] Route: PO; dsf 18:25 CANCELLED (Other Intervention Used): Tenecteplase (pt 80 to <90kg) 45 mg IV at bolus pc bolus; IV push over 5 seconds, flush line with 10mL of NS or D5W. 18:25 CANCELLED (Other Intervention Used): heparin (Thrombolytic Protocol, 12 units/kg/hr)) pc 47823 units IV at 12 units/kg/hr once; 1000units/hr. No Lovenox past 18hrs/ draw labs. 18:25 CANCELLED (Other Intervention Used): heparin (Thrombolytic Protocol, 60 units/kg)) 60 pc units/kg IVP once; 4000 units. Ensure no Lovenox in past 18hr, labs drawn 18:41 Drug: Nitrostat 0.4 mg [Nitrostat 0.4 mg sublingual tablet (1 tabs)] Route: Sublingual; dsf 18:41 Follow up: Pain 6/10 Adult; see trend VS ms2 18:46 Follow up: Pain 6/10 Adult; see trend VS ms2 18:45 Drug: Tenecteplase (pt 80 to <90kg) 45 mg [tenecteplase 50 mg intravenous kit] Route: dsf IV; Rate: bolus; Site: left antecubital; 18:47 Drug: heparin (Thrombolytic Protocol, 12 units/kg/hr)) 71605 units [heparin (porcine) dsf 5,000 unit/mL injection solution] {Co-Signature: ema (Yuly Bradley RN).} Route: IV; Rate: 1000 units/hr; Site: right antecubital; 18:47 Drug: heparin (Thrombolytic Protocol, 60 units/kg)) 5034.6 units [heparin (porcine) dsf 5,000 unit/mL injection solution (1.006 mL)] {Co-Signature: ema (Yuly Bradley RN).} Route: IVP; Site: right antecubital; 18:53 Drug: morphine 2 mg [morphine 2 mg/mL intravenous cartridge (1 mL)] Route: IVP; Site: dsf left antecubital; 18:59 Follow up: Pain 5/10 Adult; see trend VS ms2 19:10 Drug: morphine 2 mg [morphine 2 mg/mL intravenous cartridge (1 mL)] Route: IVP; Site: ko2 left antecubital; 19:11 Follow up: Pain 6/10 Adult ko2 19:23 Drug: morphine 2 mg [morphine 2 mg/mL intravenous cartridge (1 mL)] Route: IVP; Site: ko2 left antecubital; 19:25 Follow up: Pain 5/10 Adult ko2 19:30 Drug: Metoprolol 25 mg [metoprolol tartrate 25 mg tablet (1 tabs)] Route: PO; ko2 Critical Care Time: 18:55 Critical care time: Bedside Care: 40 minutes, Consultation: 15 minutes, Family pc Intervention: 15 minutes. Total time: 70 minutes Signatures: Dispatcher [employer] EDDave Jo MD MD pc Libra Guo, RN RN srm Sanya, Bernardo, Reg Reg kf3 Michael Rojas DO DO cs11 Bethany Arevalo RN RN ko2 Spencer Valero RN ms2 Anna Jensen RN dsf Yuly Bradley RN [facility] The chart was reviewed and I authenticate all verbal orders and agree with the evaluation and treatment provided.Corrections: (The following items were deleted from the chart) 18:25 18:14 Tenecteplase (pt 80 to <90kg) 45 mg IV at bolus bolus; IV push over 5 seconds, pc flush line with 10mL of NS or D5W. ordered. pc 18:25 18:14 heparin (Thrombolytic Protocol, 12 units/kg/hr)) 84466 units IV at 12 units/kg/hr pc once; 1000units/hr. No Lovenox past 18hrs/ draw labs. ordered. pc 18:25 18:14 heparin (Thrombolytic Protocol, 60 units/kg)) 60 units/kg IVP once; 4000 units. pc Ensure no Lovenox in past 18hr, labs drawn ordered. pc Attachments: 18:50 [facility] [place] Payment Agreement kf3 Chart Complete MTDD
--- NOTE | 2016-08-03 20:32 | EDDOCDS ---
Nurse's Notes [facility] Name: Valery Mendoza Age: 45 yrs Sex: Female : 1970 Arrival Date: 08/01/2016 Time: 17:42 Bed 2 Private MD: NO PRIMARY PHYSICIAN, . Diagnosis: ST elevation (STEMI) myocardial infarction of other sites-anteroseptolaterally Presentation: 08/01 17:51 Presenting complaint: Patient states: states started with back ache, cough, chest pain, srm mucousy stools yesterday. pain not going away. headache. head congestion. states has taken tylenol and motrin but cant keep it down. Aspirin was not taken prior to arrival. Adult Sepsis Screening: The patient does not have new or worsening altered mentation. Patient's respiratory rate is less than 22. Systolic blood pressure is greater than 100. Patient has a qSOFA score of 0- Negative Sepsis Screen. Suicide/Homicide risk assessment- the patient denies having any suicidal and/or homicidal ideations and does not present with any other emotional, behavioral or mental health complaints. Status: Patient is not a loan service officer or dependent. Transition of care: patient was not received from another setting of care. 17:51 Acuity: KOKO Level 2 srm 17:51 Method Of Arrival: Walkin/Carried/Asstd srm 17:51 Red Flag criteria, patient assessed and taken directly to a bed. srm Triage Assessment: 17:55 General: Appears uncomfortable, Behavior is appropriate for age, cooperative, crying. srm Pain: Pain currently is 10 out of 10 on a pain scale. Cardiovascular: Chest pain is described as Pain is 10 out of 10 on a pain scale. began yesterday. 19:12 Cardiovascular: Chest pain radiates to left. ko2 19:12 HIV screening NA for this visit Offered previously. ko2 19:13 Cardiovascular: Chest pain episodes are continuous. ko2 SHOP ESTIMATOR: 17:55 LMP 07/10/2016 srm Historical: - Allergies: no known allergies; - Home Meds: 1. Motrin 600 mg Oral tab (Last dose: 08/01/2016 16:00) 2. Tylenol 325 mg Oral tab 2 tabs (Last dose: 08/01/2016 15:00) - PMHx: none; - PSHx: none; - The history from nurses notes was reviewed: and I agree with what is documented. - Social history: Smoking status: Patient uses tobacco products, current every day smoker. No barriers to communication noted, The patient speaks fluent [place]an, Speaks appropriately for age. - : The pt / caregiver states he / she is not on anticoagulants. Home medication list is obtained from the patient. - Hospitalizations: : No recent hospitalization is reported. - Exposure Risk Screening:: None identified. - Immunization history:: All immunizations up-to-date. - Family history: Pertinent for heart disease, hypertension. - Social history:: the patient smokes cigarettes the patient drinks alcohol. Screenin:12 Screening information is obtained from the patient. Fall risk: No risks identified. ko2 Assistance ADL's: requires no assistance with activities of daily living. Abuse/DV Screen: The patient / caregiver reports he/she is: not in a situation that causes fear, pain or injury. Nutritional screening: No deficits noted. Advance Directives: Currently, there is no health care proxy. There is no active DNR order. There is no living will. There is no Power of Residential Sales Executive. home support is adequate. Assessment: 18:20 Adult Sepsis Screening: The patient does not have new or worsening altered mentation. dsf Patient's respiratory rate is less than 22. Systolic blood pressure is greater than 100. Patient has a qSOFA score of 0- Negative Sepsis Screen. General: Appears distressed, uncomfortable, Behavior is crying. Pain: Location: chest Pain currently is 10 out of 10 on a pain scale. Pain radiates to neck Quality of pain is described as tightness. Neurological: Level of Consciousness is awake, alert, Oriented to person, place, time. Cardiovascular: Capillary refill < 3 seconds Heart tones S1 S2 present Rhythm is sinus tachycardia No ectopy. Respiratory: Airway is patent Respiratory effort is even, unlabored, Respiratory pattern is regular, symmetrical, Breath sounds are clear bilaterally. GI: Abdomen is non- distended Bowel sounds present X 4 quads. Abd is soft and non tender X 4 quads. Reports nausea. Derm: Skin is pink, warm & dry. 19:13 General: Appears distressed, uncomfortable, Behavior is appropriate for age, ko2 cooperative, crying. Pain: Location: chest Pain currently is 6 out of 10 on a pain scale. Neurological: Level of Consciousness is awake, alert, Oriented to person, place, time. Cardiovascular: Heart tones S1 S2 present Rhythm is sinus tachycardia No ectopy. Respiratory: Airway is patent Respiratory effort is even, unlabored, Respiratory pattern is regular, symmetrical, Breath sounds are clear bilaterally. Derm: Skin is pink, warm & dry. Vital Signs: 17:44 BP 146 / 114; Pulse 101; Resp 20 S; Temp 99.1(O); Pulse Ox 99% on R/A; Weight 83.91 kg gr2 (R); Height 5 ft. 6 in. (167.64 cm) (R); Pain 10/10; 18:15 BP 132 / 100 (auto/); dsf 18:20 Pulse 110 MON; Pulse Ox 100% ; dsf 18:22 BP 135 / 93 (auto/); dsf 18:22 Pulse 106 MON; Pulse Ox 99% ; dsf 18:24 Pain 7/10; ms2 18:24 Pain 7/10; ms2 18:25 BP 122 / 83 (auto/); dsf 18:25 Pulse 90 MON; Pulse Ox 99% ; dsf 18:25 BP 134 / 89; Pulse 87; Pain 6/10; dsf 18:37 BP 133 / 86 (auto/); dsf 18:40 Pulse 92 MON; Pulse Ox 99% ; dsf 18:41 BP 134 / 89 (auto/); dsf 18:41 Pain 6/10; ms2 18:42 Pulse 78 MON; Pulse Ox 100% ; dsf 18:46 BP 133 / 87 (auto/); dsf 18:46 Pulse 93 MON; Pulse Ox 98% ; dsf 18:46 Pain 6/10; ms2 18:47 BP 136 / 83 (auto/); dsf 18:47 Pulse 88 MON; Pulse Ox 98% on 4 lpm NC; Pain 5/10; dsf 18:51 BP 137 / 80 (auto/); ms2 18:52 Pulse 92 MON; Pulse Ox 97% ; ms2 18:56 BP 129 / 91 (auto/); ms2 18:57 Pulse 73 MON; Pulse Ox 97% ; ms2 18:59 Pain 5/10; ms2 19:01 BP 132 / 88 (auto/); ko2 19:02 Pulse 72 MON; Pulse Ox 98% ; ko2 19:06 BP 136 / 97 (auto/); ko2 19:07 Pulse 95 MON; Pulse Ox 99% ; ko2 19:11 Pain 6/10; ko2 19:25 Pain 5/10; ko2 19:30 BP 141 / 94; Pulse 84; Resp 18; Temp 97.5(T); Pulse Ox 99% on 4 lpm NC; Pain 8/10; ko2 17:44 Body Mass Index 29.86 (83.91 kg, 167.64 cm) gr2 Vitals: 17:44 Log In Time: August 01, 2016 at 17:44. RN notified that patient meets Red Flag gr2 criteria. ED Course: 17:43 Patient visited by Glenn Garcia. gr2 17:43 Patient moved to Waiting gr2 17:44 NO PRIMARY PHYSICIAN, . is Private Physician. gr2 17:49 Patient visited by Glenn Garcia. gr2 17:50 Milo Vanessa, RN is Primary Nurse. gr2 17:50 Patient moved to 17 gr2 17:53 Triage Initiated srm 17:58 EKG done. (by ED staff). Reviewed by Dave Canela MD. dem1 18:05 Patient visited by Leti Cloud. dem1 18:05 electrical continuity inspector on. Pulse ox on. NIBP on. dem1 18:10 Dave Canela MD is Attending Physician. pc 18:10 Patient visited by Dave Canela MD. pc 18:12 Patient moved to 2 [facility] 18:20 Basic Metabolic Profile Sent. dsf 18:20 CBC with Diff Sent. dsf 18:20 Cardiac Injury Profile Sent. dsf 18:20 PT/INR Sent. dsf 18:20 PTT Sent. dsf 18:20 Troponin Sent. dsf 18:20 Inserted saline lock: 18 gauge in left antecubital area The patient tolerated the dsf procedure well. 18:20 Inserted saline lock: 18 gauge in right antecubital area The patient tolerated the dsf procedure well. 18:21 Patient visited by Mague Millan PCA. rs6 18:50 [facility] Payment Agreement was scanned into MyTime and attached to record. kf3 18:56 Bethany Arevalo,MANI is Primary Nurse. ko2 19:08 Attending Physician role handed off by Dave Canela MD cs11 19:08 Hector Saeed DO is Attending Physician. cs11 19:12 The patient / caregiver is instructed regarding the plan of care and ED course. ko2 19:14 Patient visited by Bethany Arevalo RN. ko2 19:18 Patient visited by Bib Laboy PCA. mdr 19:18 EKG done. (by ED staff). Reviewed by Hector Saeed DO. mdr 19:26 No procedures done that require assistance. ko2 19:44 Chest, 1 View Returned. EDMS 19:44 CT Chest Angio R/O PE Returned. EDMS 08/02 16:07 EKG-ADULT Returned. EDMS 16:07 EKG-ADULT Returned. EDMS Administered Medications: 08/01 18:18 Drug: Aspirin 324 mg [aspirin 81 mg chewable tablet (4 tabs)] Route: PO; dsf 18:18 Drug: Plavix - Clopidogrel 300 mg [clopidogrel 75 mg tablet (4 tabs)] Route: PO; dsf 18:18 Drug: Nitrostat 0.4 mg [Nitrostat 0.4 mg sublingual tablet (1 tabs)] Route: Sublingual; dsf 18:18 Drug: morphine 2 mg [morphine 2 mg/mL intravenous cartridge (1 mL)] Route: IVP; Site: dsf right antecubital; 18:24 Follow up: Pain 7/10 Adult; see trend VS ms2 18:18 Drug: Ondansetron 4 mg [ondansetron HCl 2 mg/mL intravenous solution (2 mL)] Route: dsf IVP; Site: right antecubital; 18:24 Drug: Nitrostat 0.4 mg [Nitrostat 0.4 mg sublingual tablet (1 tabs)] Route: Sublingual; dsf 18:24 Follow up: Pain 7/10 Adult; see trend VS ms2 18:24 Drug: Famotidine 20 mg [famotidine 20 mg tablet (1 tabs)] Route: PO; dsf 18:25 CANCELLED (Other Intervention Used): Tenecteplase (pt 80 to <90kg) 45 mg IV at bolus pc bolus; IV push over 5 seconds, flush line with 10mL of NS or D5W. 18:25 CANCELLED (Other Intervention Used): heparin (Thrombolytic Protocol, 12 units/kg/hr)) pc 62223 units IV at 12 units/kg/hr once; 1000units/hr. No Lovenox past 18hrs/ draw labs. 18:25 CANCELLED (Other Intervention Used): heparin (Thrombolytic Protocol, 60 units/kg)) 60 pc units/kg IVP once; 4000 units. Ensure no Lovenox in past 18hr, labs drawn 18:41 Drug: Nitrostat 0.4 mg [Nitrostat 0.4 mg sublingual tablet (1 tabs)] Route: Sublingual; dsf 18:41 Follow up: Pain 6/10 Adult; see trend VS ms2 18:46 Follow up: Pain 6/10 Adult; see trend VS ms2 18:45 Drug: Tenecteplase (pt 80 to <90kg) 45 mg [tenecteplase 50 mg intravenous kit] Route: dsf IV; Rate: bolus; Site: left antecubital; 18:47 Drug: heparin (Thrombolytic Protocol, 12 units/kg/hr)) 19930 units [heparin (porcine) dsf 5,000 unit/mL injection solution] {Co-Signature: mcp (Yuly Bradley RN).} Route: IV; Rate: 1000 units/hr; Site: right antecubital; 18:47 Drug: heparin (Thrombolytic Protocol, 60 units/kg)) 5034.6 units [heparin (porcine) dsf 5,000 unit/mL injection solution (1.006 mL)] {Co-Signature: mcp (Yuly Bradley RN).} Route: IVP; Site: right antecubital; 18:53 Drug: morphine 2 mg [morphine 2 mg/mL intravenous cartridge (1 mL)] Route: IVP; Site: dsf left antecubital; 18:59 Follow up: Pain 5/10 Adult; see trend VS ms2 19:10 Drug: morphine 2 mg [morphine 2 mg/mL intravenous cartridge (1 mL)] Route: IVP; Site: ko2 left antecubital; 19:11 Follow up: Pain 6/10 Adult ko2 19:23 Drug: morphine 2 mg [morphine 2 mg/mL intravenous cartridge (1 mL)] Route: IVP; Site: ko2 left antecubital; 19:25 Follow up: Pain 5/10 Adult ko2 19:30 Drug: Metoprolol 25 mg [metoprolol tartrate 25 mg tablet (1 tabs)] Route: PO; ko2 Intake: Order Results: Lab Order: Basic Metabolic Profile; SPEC'M 08/01/16 18:20 Test: GLUCOSE, FASTING; Value: 130; Range: 70-105; Abnormal: Above high normal; Units: MG/DL; Status: F Test: BLOOD UREA NITROGEN; Value: 7; Range: 7-18; Units: MG/DL; Status: F Test: CREATININE FOR GFR; Value: 0.60; Range: 0.55-1.02; Units: MG/DL; Status: F Test: GLOMERULAR FILTRATION RATE; Value: > 60.0; Range: >58; Status: F Test: SODIUM LEVEL; Value: 141; Range: 136-145; Units: MEQ/L; Status: F Test: POTASSIUM SERUM; Value: 4.2; Range: 3.5-5.1; Units: MEQ/L; Status: F Test: CHLORIDE LEVEL; Value: 103; Range: 98-107; Units: MEQ/L; Status: F Test: CARBON DIOXIDE LEVEL; Value: 29; Range: 21-32; Units: MEQ/L; Status: F Test: ANION GAP; Value: 9; Range: 8-16; Units: MEQ/L; Status: F Test: CALCIUM LEVEL; Value: 9.4; Range: 8.5-10.1; Units: MG/DL; Status: F Test Note: ; Units are mL/min/1.73 m2 Chronic Kidney Disease Staging per NKF: Stage I & II GFR >=60 Normal to Mildly Decreased Stage III GFR 30-59 Moderately Decreased Stage IV GFR 15-29 Severely Decreased Stage V GFR <15 Very Little GFR Left ESRD GFR <15 on LOGISTICS ANALYST Lab Order: CBC with Diff; SPEC'M 08/01/16 18:20 Test: WHITE BLOOD COUNT; Value: 13.6; Range: 4.0-10.0; Abnormal: Above high normal; Units: K/mm3; Status: F Test: RED BLOOD COUNT; Value: 4.90; Range: 4.00-5.40; Units: M/mm3; Status: F Test: HEMOGLOBIN; Value: 15.6; Range: 12.0-16.0; Units: g/dl; Status: F Test: HEMATOCRIT; Value: 45.6; Range: 36.0-47.0; Units: %; Status: F Test: MEAN CORPUSCULAR VOLUME; Value: 92.9; Range: 80.0-96.0; Units: fl; Status: F Test: MEAN CORPUSCULAR HEMOGLOBIN; Value: 31.8; Range: 27.0-33.0; Units: pg; Status: F Test: MEAN CORPUSCULAR HGB CONC; Value: 34.3; Range: 32.0-36.5; Units: g/dl; Status: F Test: RED CELL DISTRIBUTION WIDTH; Value: 12.7; Range: 11.5-14.5; Units: %; Status: F Test: PLATELET COUNT, AUTOMATED; Value: 252; Range: 150-450; Units: k/mm3; Status: F Test: NEUTROPHILS %; Value: 84.3; Range: 36.0-66.0; Abnormal: Above high normal; Units: %; Status: F Test: LYMPH %; Value: 9.1; Range: 24.0-44.0; Abnormal: Below low normal; Units: %; Status: F Test: MONO %; Value: 4.0; Range: 0.0-5.0; Units: %; Status: F Test: EOS %; Value: 1.9; Range: 0.0-3.0; Units: %; Status: F Test: BASO %; Value: 0.2; Range: 0.0-1.0; Units: %; Status: F Test: LARGE UNSTAINED CELL %; Value: 0.4; Range: 0.0-4.0; Units: %; Status: F Test: NEUTROPHILS #; Value: 11.5; Range: 1.8-7.7; Abnormal: Above high normal; Units: K/mm3; Status: F Test: LYMPH #; Value: 1.3; Range: 1.5-4.5; Abnormal: Below low normal; Units: K/mm3; Status: F Test: MONO #; Value: 0.6; Range: 0.0-0.8; Units: K/mm3; Status: F Test: EOS #; Value: 0.2; Range: 0.0-0.50; Units: K/mm3; Status: F Test: BASO #; Value: 0.0; Range: 0.0-0.2; Units: K/mm3; Status: F Test: LARGE UNSTAINED CELL #; Value: 0.1; Range: 0.0-0.4; Units: K/mm3; Status: F Lab Order: Cardiac Injury Profile; [facility] 08/01/16 18:20 Test: CPK CREATINE PHOSPHOKINASE; Value: 1701; Range: 26-192; Abnormal: Above high normal; Units: U/L; Status: F Test: CK-MB VALUE MASS; Value: 271.1; Range: 0.0-3.6; Abnormal: Above high normal; Units: NG/ML; Status: F Test: MB/CK RELATIVE INDEX; Value: 15.93; Range: < OR =4; Abnormal: Above high normal; Status: F Test Note: ; DIAGNOSIS CRITERIA MMB ng/ml Relative Index (RI) NON-AMI < or = 5 N/A RODRIGUEZ ZONE > 5 < or = 4 AMI > 5 > 4 Lab Order: PT/INR; [facility] 08/01/16 18:20 Test: PROTHROMBIN TIME; Value: 13.0; Range: 12.3-14.5; Units: SECONDS; Status: F Test: INR; Value: 0.97; Status: F Test Note: ; THERAPUTIC HUMAN INR VALUES INDICATIONS NORMAL RANGES PROPHYLAXIS/TREATMENT OF: VENOUS THROMBOSIS 2.0-3.0 PULMONARY EMBOLISM 2.0-3.0 PREVENTION OF SYSTEMIC EMBOLISM FROM: TISSUE HEART VALVES 2.0-3.0 ACUTE MYOCARDIAL INFARCTION 2.0-3.0 VALVULAR HEART DISEASE 2.0-3.0 ATRIAL FIBRILLATION 2.0-3.0 MECHANICAL VALVES(HIGH RISK) 2.5-3.5 RECURRENT MYOCARDIAL INFARCTION 2.5-3.5 Lab Order: PTT; [facility] 08/01/16 18:20 Test: PARTIAL THROMBOPLASTIN TIME; Value: 25.6; Range: 26.6-37.1; Abnormal: Below low normal; Units: SECONDS; Status: F Lab Order: Troponin; [facility] 08/01/16 18:20 Test: TROPONIN I; Value: 13.80; Range: < 0.10; Abnormal: Above upper panic limits; Units: NG/ML; Status: F Test Note: ; Troponin I Reference Interval for HDS INTERNATIONAL LOCI: 99th Percentile= 0.00-0.045 ng/ml Risk Stratification: <= 0.10 ng/ml Decreased Risk for Adverse Clinical Events. 0.10-1.50 ng/ml Increased Risk for Adverse Clinical Events. Evaluation of additional criterion and/or repeat testing in 2-6 hours is suggested to rule out myocardial damage. >= 1.50 ng/ml Indicative of Myocardial Injury. 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: mickie; : 1970 Requested By: Dave Gonzalez; Order Number: [id number] Reading MD: Tequila Liang; Measurements; Intervals [place]; Rate: 82 P: 74; ND: 150 QRS: 88; QRSD: 94 T: 90; QT: 326; QTc: 381; Interpretive Statements; SINUS RHYTHM WITH MARKED SINUS ARRHYTHMIA; ST ELEVATION, ANTERIOR INJURY, ACUTE VA; CLINICAL CORRELATION; NO PRIOR FOR COMPARISON; Electronically Signed On 08-02-2016 15:16:56 EST by Tequila Liang; Radiology Order: Chest, 1 View Test: Chest, 1 View REASON FOR EXAMINATION: Chest Pain; Clinical: Chest pain .; ; Comparison: None .; ; Findings:; The mediastinum and cardiac silhouette are stable and within normal limits for; portable technique. The lung colon are clear without acute consolidation,; effusion, or pneumothorax. Skeletal structures are intact.; ; Impression:; Normal portable chest x-ray; ; ; Signed by; Phillip Pettit MD 08/01/2016 06:37 P; Radiology Order: CT Chest Angio R/O PE Test: CT Chest Angio R/O PE REASON FOR EXAMINATION: r/o TAA dissection; Clinical: Acute chest pain. Rule out thoracic aortic dissection.; ; Technique: Axial contrast enhanced images from the thoracic inlet to the upper; abdomen using 100 ml Isovue 370 intravenous contrast material with coronal and; sagittal re-formations.; ; Findings: Satisfactory enhancement of the thoracic aorta without aneurysm or; dissection. Heart and pericardium are normal. Bilateral lung colon are well; aerated and clear without acute pulmonary parenchymal consolidation or; atelectasis. No nodule or mass lesion. No pleural effusion/reaction. No; pneumothorax. No adenopathy.; ; Impression:; No evidence for thoracic aortic aneurysm or dissection.; No acute pleuroparenchymal or mediastinal process.; ; ; Signed by; Phillip Pettit MD 08/01/2016 06:42 P; Radiology Order: EKG-ADULT Test: EKG-ADULT REASON FOR EXAMINATION: tpa reeval; Stationary ECG Study; [facility] - ED; ; Test Date: 2016-08-01; Pat Name: VALERY MENDOZA Department:; Room: -; Gender: F Medical Device Sales: ; : 1970 Requested By: HECTOR SAEED; Order Number: [id number] Reading MD: Tequila Liang; Measurements; Intervals [place]; Rate: 73 P: 68; ND: 142 QRS: 89; QRSD: 105 T: 108; QT: 451; QTc: 497; Interpretive Statements; SINUS RHYTHM WITH OCCASIONAL SUPRAVENTRICULAR PREMATURE COMPLEXES; ANTEROLATERAL ST ELEVATION, ACUTE ISCHEMIA, PROGRESSION COMPARED 17:58; CLINICAL CORRELATION; ; Electronically Signed On 08-02-2016 15:21:54 EST by Tequila Liang; Outcome: 18:57 ER care complete, transfer ordered by Provider. pc 19:06 Admission hand-off: Report called to Ever Crystal RN. dsf 19:14 CT Study completed. ko2 19:26 Discharge Assessment: Patient awake, alert and oriented x 3. No cognitive and/or ko2 functional deficits noted. Patient verbalized understanding of disposition instructions. patient administered narcotics - yes. Patient was admitted to the hospital or transferred to another facility. The following High Risk Discharge criteria are identified: Yes, VA. [facility] to accompanying personnel Derrek Beverly, Charge Accounts Audit Clerk and Michael Miller EMT. Condition: stable. Property :Personal belongings accompany Pt. 19:31 Patient left the ED. ko2 Signatures: Dispatcher [employer] EDMS Dave Canela MD MD pc Sobkiewicz, Michele, RN RN ms2 Libra Guo RN RN srm Yuly Bradley RN RN mcp Bernardo Segundo, Reg Reg kf3 Anna Jensen RN RN dsf Leti Cloud Craig, DO DO cs11 Glenn Garcia gr2 Btehany Arevalo,RN RN ko2 Mague Millan, CAR USHER CAR USHER rs6 Bib Laboy, CAR USHER CAR USHER mdr Yuly Bradley RN mcp Chart Complete MTDD
== END 2016-08-01 19:31 | disposition short-term general hospital (02) ==
LOC: M ED 17:42
DX: I21.09 ST elevation (STEMI) myocardial infarction involving other coronary artery of anterior wall (principal); F17.200 Nicotine dependence, unspecified, uncomplicated
CPT/HCPCS: 36415; 71010; 71275; 80048; 82550; 82553; 85025; 85610; 85730; 93005; 93041; 99285; J3101; Q9967

== ENCOUNTER → 2016-12-06 | Outpatient (REF) | payer BC | LOC: M LAB REF 13:33 | PROVIDERS: ATTEND Nurse Practitioner Family | DX: F41.9 Anxiety disorder, unspecified (principal); J34.81 Nasal mucositis (ulcerative) ==

== ENCOUNTER 2018-09-25 21:09 | Emergency (ER) | payer BC ==
[~2018-09-25] VITALS: Ht 167.6 cm; Wt 78.6 kg
[2018-09-25] MEDS ORDERED: FLUO10CA8 (21:28)
[2018-09-25] MEDS ORDERED: BISO5TAB5 (21:28)
[2018-09-25] MEDS ORDERED: LIVA2TAB (21:28)
[2018-09-25] MEDS ORDERED: FURO20TA2 (21:28)
[2018-09-25] MEDS ORDERED: LISI-1046 (21:28)
[2018-09-25] MEDS ORDERED: ASPI81CH33 PO (21:28)
[2018-09-25] MEDS ORDERED: SPIR-10 (21:28)
[2018-09-25] MEDS ORDERED: CLOP75TA2 (21:28)
[2018-09-25] MEDS ORDERED: IPRATROPIUM 0.5MG/ALBUTEROL 2.5MG INH SOL UD 3ML (DUONEB)(J7620) NEB PRN (22:00)
[2018-09-25] MEDS ORDERED: methylPREDNISolone INJ 125 MG/2 ML VIAL (J2930) IV ONE (22:00)
[2018-09-25 22:30] LABS: BASO # 0.1 10^3/uL (0.0-0.2); BASO % 0.7 % (0.0-1.0); EOS # 0.1 10^3/uL (0.0-0.50); EOS % 1.9 % (0.0-3.0); HEMATOCRIT 40.7 % (36.0-47.0); HEMOGLOBIN 13.9 g/dl (12.0-15.5); LYMPH # 2.5 10^3/uL (1.5-4.5); LYMPH % 35.7 % (24.0-44.0); MEAN CORPUSCULAR HEMOGLOBIN 33.3 pg (27.0-33.0); MEAN CORPUSCULAR HGB CONC 34.2 g/dl (32.0-36.5); MEAN CORPUSCULAR VOLUME 97.6 fl (80.0-96.0); MONO # 0.6 10^3/uL (0.0-0.8); MONO % 8.5 % (0.0-5.0); NEUTROPHILS # 3.7 10^3/uL (1.8-7.7); NEUTROPHILS % 53.1 % (36.0-66.0); PLATELET COUNT, AUTOMATED 219 10^3/uL (150-450); RED BLOOD COUNT 4.17 10^6/uL (4.00-5.40)
[2018-09-25] MEDS ORDERED: NS 1,000 ML IV ONE (22:45)
[2018-09-25 23:03] LABS: BLOOD UREA NITROGEN 17 MG/DL (7-18); CALCIUM LEVEL 8.5 MG/DL (8.5-10.1); CARBON DIOXIDE LEVEL 30 MEQ/L (21-32); CHLORIDE LEVEL 105 MEQ/L (98-107); CPK CREATINE PHOSPHOKINASE 73 U/L (26-192); CREATININE FOR GFR 0.71 MG/DL (0.55-1.30); GLOMERULAR FILTRATION RATE > 60.0 (>58); GLUCOSE, FASTING 96 MG/DL (70-100); MB/CK RELATIVE INDEX 1.64 (< OR =4); POTASSIUM SERUM 4.2 MEQ/L (3.5-5.1); SODIUM LEVEL 141 MEQ/L (136-145); TROPONIN I < 0.02 NG/ML (< 0.10)
[2018-09-25] MEDS ORDERED: ISOVUE-370 76% 100ML VIAL (Q9967) As Ordered ONE (23:13)
--- NOTE | 2018-09-25 23:45 | REPVR ---
EXAM: CT Angiography Chest With Contrast EXAM DATE/TIME: 09/25/2018 9:58 PM CLINICAL HISTORY: 48 years old, female; Chest pain; Type not specified; Additional info: R/O pe TECHNIQUE: Imaging protocol: Axial computed tomographic angiography images of the chest with intravenous contrast using CT angiography protocol. Coronal and sagittal reformatted images were created and reviewed. 3D rendering: MIP reconstructed images were created and reviewed. Radiation optimization: All CT scans at this facility use at least one of these dose optimization techniques: automated exposure control; mA and/or kV adjustment per patient size (includes targeted exams where dose is matched to clinical indication); or iterative reconstruction. Contrast material: ISO; Contrast volume: 75 ml; Contrast route: AC; COMPARISON: CT ANGIO CHEST 08/01/2016 6:30 PM FINDINGS: Pulmonary arteries: There are no pulmonary emboli. Aorta: There is no aortic dissection or aneurysm. Lungs: Bibasilar atelectasis. Lungs otherwise clear. Pleural space: Normal. No pneumothorax. No pleural effusion. Heart: Normal. No cardiomegaly. No pericardial effusion. Lymph nodes: Unremarkable. No enlarged lymph nodes. Bones/joints: The spine demonstrates mild degenerative changes. Soft tissues: Unremarkable. IMPRESSION: 1. There is no aortic dissection or aneurysm. 2. There are no pulmonary emboli. Electronically signed by: Oscar Mascorro On 09/25/2018 23:44:47 PM
[2018-09-26] MEDS ORDERED: ALBU17IN2 INH
[2018-09-26] MEDS ORDERED: DOXY-350 PO
[2018-09-26] MEDS ORDERED: MEDR4PAK PO
[2018-09-26 00:05] VITALS: BP 108/57
[2018-09-26] MEDS ORDERED: DOXYCYCLINE HYCLATE 100 MG TAB PO ONE (00:15)
--- NOTE | 2018-09-27 20:33 | ECGEPIP ---
Stationary ECG Study [facility] - ED Test Date: 2018-09-25 Pat Name: ABRAHAM IZQUIERDO Department: Room: - Gender: F Multicultural Internship: : 1970 Requested By: SHARONDA Holley Order Number: [id number] Reading MD: Tequila Liang Measurements Intervals [place] Rate: 65 P: 61 [place]: 148 QRS: 84 QRSD: 105 T: 77 QT: 407 QTc: 425 Interpretive Statements SINUS RHYTHM DELAYED R PROGRESSION NSTTW ABNORMALITY 08/01/16 STEMI Electronically Signed On 09-27-2018 20:33:07 EDT by Tequila Liang
== END 2018-09-26 00:25 | disposition home or self-care (01) ==
LOC: M ED 21:09
DX: J40 Bronchitis, not specified as acute or chronic (principal); Z91.040 Latex allergy status; F17.210 Nicotine dependence, cigarettes, uncomplicated
CPT/HCPCS: 71275; 80048; 82550; 82553; 84484; 85025; 93005; 93041; 94640; 94760; 96361; 96374; 99285; J2930; Q9967

== ENCOUNTER → 2019-09-20 | Outpatient (REF) | payer BC ==
[~2019-09-20] MED LIST: ASPI81CH33 PO; BISO5TAB14; CLOP75TA2; DOXY-350 PO; FLUO10CA15; FURO20TA2; LISI-1046; LIVA2TAB; MEDR4PAK PO; PROV108A INH; SPIR-10
[2019-09-20 13:03] LABS: HCG, SERUM QUALITATIVE NEGATIVE (NEGATIVE)
== END ==
LOC: M LAB REF 12:13
PROVIDERS: ATTEND Nurse Practitioner Family
DX: N91.2 Amenorrhea, unspecified (principal)

== ENCOUNTER → 2020-04-13 | Outpatient (REF) | payer MEDICAID ==
[~2020-04-13] MED LIST changes: -FLUO10CA15; +FLUO10CA16; -LISI-1046; +LISI2.5T2
[2020-04-13 16:20] LABS: HCG, SERUM QUALITATIVE NEGATIVE (NEGATIVE)
== END ==
LOC: M LAB REF 16:05
PROVIDERS: ATTEND Registered Nurse
DX: Z30.9 Encounter for contraceptive management, unspecified (principal)

== ENCOUNTER 2020-11-10 16:08 | Emergency (ER) | payer MEDICAID, OTHER ==
[2020-11-10] VITALS (8 sets, daily range): BP systolic 108–164; BP diastolic 63–83
[~2020-11-10] VITALS: Ht 165.1 cm; Wt 71.1 kg
--- NOTE | 2020-11-10 16:37 | REP ---
INDICATION: CVA - Nursing interventions must not delay CT COMPARISON: None. TECHNIQUE: Axial noncontrast images from the skull base to the vertex with coronal reformations. This CT examination was performed using the following dose reduction techniques: Automated exposure control, adjustment of mA and/or kv according to the patient's size, and use of iterative reconstruction technique. FINDINGS: The ventricles, sulci, and cisterns are normal in position and appearance. Albright-white differentiation is maintained. No acute intracranial hemorrhage, mass/mass effect, pathology or trauma/injury. No evidence for acute infarction. No extra-axial fluid collection. Calvarium is intact. Paranasal sinuses and mastoid air cells are clear. IMPRESSION: Normal noncontrast head CT. No evidence for acute intracranial pathology or trauma/injury. <Electronically signed by Phillip Pettit > 11/10/20 [id number]
[2020-11-10] MEDS ORDERED: ROSU20TA5 PO (16:49)
[2020-11-10 17:09] LABS: BASO # 0.1 10^3/uL (0.0-0.2); BASO % 0.7 % (0.0-1.0); EOS % 0.5 % (0.0-3.0); HEMATOCRIT 42.6 % (36.0-47.0); HEMOGLOBIN 14.6 g/dl (12.0-15.5); LYMPH # 2.4 10^3/uL (1.5-5.0); LYMPH % 32.1 % (24.0-44.0); MEAN CORPUSCULAR HGB CONC 34.3 g/dl (32.0-36.5); MEAN CORPUSCULAR VOLUME 99.1 fl (80.0-96.0); MONO # 0.7 10^3/uL (0.0-0.8); MONO % 8.7 % (2.0-8.0); NEUTROPHILS # 4.4 10^3/uL (1.5-8.5); NEUTROPHILS % 57.7 % (36.0-66.0); PLATELET COUNT, AUTOMATED 251 10^3/uL (150-450); WHITE BLOOD COUNT 7.6 10^3/uL (4.0-10.0)
[2020-11-10 17:15] LABS: INR 0.92; PROTHROMBIN TIME 12.6 SECONDS (12.5-14.3)
[2020-11-10 17:16] LABS: PARTIAL THROMBOPLASTIN TIME 27.8 SECONDS (24.2-38.5)
[2020-11-10 17:19] LABS: CK-MB VALUE MASS < 1.0 NG/ML (<3.6); CPK CREATINE PHOSPHOKINASE 56 U/L (26-192); MB/CK RELATIVE INDEX 1.79 (< OR =4); TROPONIN I < 0.02 NG/ML (< 0.10)
--- NOTE | 2020-11-10 17:39 | REP ---
INDICATION: CVA COMPARISON: 08/01/2016 TECHNIQUE: Portable AP view of the chest FINDINGS: The mediastinum and cardiac silhouette are stable and within normal limits for portable technique. The lung colon are clear without acute consolidation, effusion, or pneumothorax. Skeletal structures are intact. IMPRESSION: No acute cardiopulmonary process appreciated. <Electronically signed by Phillip Pettit > 11/10/20 [id number]
[2020-11-10] MEDS ORDERED: ALTEPLASE 100MG VIAL IV ONE (19:10)
[2020-11-10] MEDS ORDERED: ALTEPLASE RECOMBINANT IV ONE (19:10)
[2020-11-10] MEDS ORDERED: SODIUM CHLORIDE 0.9% 50 ML IV ONE (20:10)
[2020-11-10 20:14] LABS: RSV AMPLIFICATION NEGATIVE (NEGATIVE)
--- NOTE | 2020-11-10 21:35 | ECGEPIP ---
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
--- NOTE | 2020-11-13 15:59 | REP ---
INDICATION: cva. COMPARISON: CT brain 11/10/2020. TECHNIQUE: Multiple sequences obtained in the axial and sagittal planes. FINDINGS: Abnormal signal is seen on diffusion and ADC sequences along the posterior aspect of the left sylvian fissure and adjacent left parietal lobe consistent with an area of small vessel infarction. There is no MR evidence of hemorrhage. There is no midline shift or mass effect. Posterior fossa is unremarkable. Ventricles are normal in size. In the left lateral ventricle anteriorly near the foramen of Monro, as seen on the recent CT exam, there is a 1.5 cm calcified mass. There is no extra-axial fluid collection. No other abnormal signal is seen. There is no abnormal signal in the visualized paranasal sinuses or mastoid air cells. The 7th and 8th cranial nerve complexes are unremarkable. The orbital regions are unremarkable. IMPRESSION: Findings consistent with acute nonhemorrhagic small vessel infarcts in the region of the posterior aspect of the left sylvian fissure and adjacent parietal lobe. No midline shift or mass effect. As seen on recent CT scan, there is a 1.5 cm calcified mass in the left lateral ventricle near the foramen of Monro. 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 Preliminary report provided by [facility] at the time of the exam. <Electronically signed by Lamine Albright > 11/13/20 [id number]
--- NOTE | 2020-11-13 17:23 | REP ---
INDICATION: cva. COMPARISON: MRI today. TECHNIQUE: MRA brain performed utilizing 3D [id number] imaging and MIP reconstructions. FINDINGS: Intracranial carotid vessels are widely patent. Anterior cerebral arteries and anterior communicating arteries are widely patent. Right middle cerebral artery and branches are widely patent. Left middle cerebral artery is patent at the M1 segment. There is occlusion of the left MCA M2 branch extending posteriorly and superiorly in the left sylvian fissure. Vertebrobasilar system is widely patent and demonstrates no stenosis. There is no basilar artery stenosis. Posterior cerebral arteries are patent. I see no aneurysm or AVM. 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 A preliminary report was provided by [facility] at the time of the exam. <Electronically signed by Lamine Albright > 11/13/20 [id number]
== END 2020-11-10 20:47 | disposition short-term general hospital (02) ==
LOC: M ED 16:08
DX: I63.412 Cerebral infarction due to embolism of left middle cerebral artery (principal); I10 Essential (primary) hypertension; E78.5 Hyperlipidemia, unspecified; Z91.040 Latex allergy status; Z95.5 Presence of coronary angioplasty implant and graft; Z79.899 Other long term (current) drug therapy; Z79.01 Long term (current) use of anticoagulants; F17.210 Nicotine dependence, cigarettes, uncomplicated
CPT/HCPCS: 70450; 70544; 70551; 71045; 80047; 82550; 82553; 85025; 85610; 85730; 86850; 86900; 86901; 87631; 93005; 93041; 94760; 96365; 99291; J2997

== ENCOUNTER → 2022-10-02 | Outpatient (REF) | payer OTHER ==
[~2022-10-02] MED LIST changes: +ALBU6.7H6 INH; -DOXY-350 PO; +DOXY-444 PO; -FLUO10CA16; +FLUO10CA18; -LISI2.5T2; +LISI2.5T9; -PROV108A INH; +ROSU20TA5 PO
[2022-10-02 15:26] LABS: C REACTIVE PROTEIN QUANTITATIV < 0.40 MG/DL (<1.0)
[2022-10-02 15:27] LABS: RHEUMATOID FACTOR QUANT 5.3 IU/ML (<14)
[2022-10-04 16:09] LABS: ANCA-ATYPICAL <1:20 titer (Neg:<1:20); ANTINUCLEAR ANTIBODIES DIRECT Negative (Negative); CYTOPLASMIC NEUTROP AB ANCA-C <1:20 titer (Neg:<1:20); PERINUCLEAR AB ANCA-P <1:20 titer (Neg:<1:20)
== END ==
LOC: M LAB REF 12:22
PROVIDERS: ATTEND Physician Assistant Medical
DX: M79.10 Myalgia, unspecified site (principal)

== ENCOUNTER → 2022-10-07 | Outpatient (CLI) | payer OTHER | LOC: M WHC 14:39 | PROVIDERS: ATTEND Physician Assistant Medical | DX: Z12.31 Encounter for screening mammogram for malignant neoplasm of breast (principal) ==

== ENCOUNTER → 2024-06-10 | Outpatient (CLI) | payer OTHER ==
[~2024-06-10] MED LIST changes: +DOXY-440 PO; -DOXY-444 PO; +FLUO-290; -FLUO10CA18; -ROSU20TA5 PO; +ROSU20TA86 PO
== END ==
LOC: M WHC 13:05
PROVIDERS: ATTEND Physician Assistant Medical
DX: Z12.31 Encounter for screening mammogram for malignant neoplasm of breast (principal)